=== PATIENT | female | born 1955 | race Caucasian/White ===

== ENCOUNTER 2017-08-10 07:46 | Inpatient (IN) | payer OTHER ==
[~2017-08-10 07:46] MED LIST: Bisacodyl 5 MG Tab PO PRN; Famotidine 20 MG Tab PO SCH; Lactated Ringers 1,000 ML IV SCH; Lidocaine 1%/Sod Bicarbonate in NS 8.4% 1 ML Syringe IDERM PRN; Magnesium Hydroxide 400 MG/5 ML Susp 30 ML Cup PO PRN; Morphine 2 MG/ML Syringe IVPUSH PRN; Naloxone 0.4 MG/ML SDV IVPUSH PRN; Ondansetron 4 MG/2 ML SDV IVPUSH PRN; Sennosides 8.6 MG Tab PO PRN; Sodium Chloride 0.9% 10 ML Syringe FLUSH PRN
[2017-08-10] MEDS ORDERED: ceFAZolin 1 GM Vial ONE (07:59)
[2017-08-10] MEDS ORDERED: Ondansetron 4 MG/2 ML SDV ONE (08:21)
[2017-08-10] MEDS ORDERED: Midazolam 1 MG/ML 2 ML SDV ONE (08:22)
[2017-08-10] MEDS ORDERED: Propofol 200 MG/20 ML SDV ONE ×2 (08:22→09:17)
[2017-08-10] MEDS ORDERED: fentaNYL 100 MCG/2 ML SDV ONE (08:22)
[2017-08-10] MEDS ORDERED: Acetaminophen 325 MG Tab PO ONE (08:34)
--- NOTE | 2017-08-10 08:41 | PCM.PREANE ---
Preanesthetic Assessment - Anesthesia/Transfusion/Family Hx Anesthesia History: Prior Anesthesia Without Reaction Family History of Anesthesia Reaction: No Transfusion History: No Prior Transfusion(s) - Review of Systems General: No Symptoms Pulmonary: No Symptoms Cardiovascular: No Symptoms (NSR with nonspecific t wave abnormality) Gastrointestinal: Other (occasional reflux, on prilosec) Neurological: No Symptoms Other: Reports: Depression - Physical Assessment NPO Status Date: 08/09/17 NPO Status Time: 19:30 Pulse: 63 O2 Sat by Pulse Oximetry: 96 Respiratory Rate: 16 Blood Pressure: 137/85 Height: 1.73 m Weight: 89 kg ASA Class: 2 Mental Status: Alert & Oriented x3 Airway Class: Mallampati = 2 Dentition: Reports: Normal Dentition Thyro-Mental Finger Breadths: 2 Mouth Opening Finger Breadths: 2 ROM/Head Extension: Full Lungs: Clear to Auscultation, Normal Respiratory Effort Cardiovascular: Regular Rate, Regular Rhythm - Lab Values: Laboratory Last Values MRSA (PCR) Negative 07/28/17 11:43 - Allergies Allergies/Adverse Reactions: Allergies Allergy/AdvReac Type Severity Reaction Status Date / Time amantadine Allergy Rash Verified 08/07/17 13:04 - Blood Blood Available: No Product(s) Available: None - Acknowledgements Anesthesia Type Planned: Spinal Pt an Appropriate Candidate for the Planned Anesthesia: Yes Alternatives and Risks of Anesthesia Discussed w Pt/Guardian: Yes Pt/Guardian Understands and Agrees with Anesthesia Plan: Yes PreAnesthesia Questionnaire HEENT History: Reports: Impaired Vision Cardiovascular History: Reports: None Respiratory History: Reports: None Gastrointestinal History: Reports: Chronic Constipation, GERD Genitourinary History: Reports: UTI, Recurrent 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: Musculoskeletal History: Reports: Osteoarthritis, Other (See Below) Other Musculoskeletal History: tendinitis, plantar fasciititis Neurological History: Reports: Other (See Below) Other Neuro History: cervical region somatic dysfunction Psychiatric History: Reports: Depression, Other (See Below) Other Psychiatric History: fatigue Endocrine/Metabolic History: Reports: Obesity/BMI 30+ Hematologic History: Reports: None Immunologic History: Reports: None Oncologic (Cancer) History: Reports: None Dermatologic History: Reports: None - Past Surgical History Head Surgeries/Procedures: Reports: None HEENT Surgical History: Reports: Cataract Surgery Cardiovascular Surgical History: Reports: None Respiratory Surgical History: Reports: None GI Surgical History: Reports: Colonoscopy Female Surgical History: Reports: Tubal Ligation Male Surgical History: Reports: None Endocrine Surgical History: Reports: None Neurological Surgical History: Reports: None Musculoskeletal Surgical History: Reports: Hip Replacement Oncologic Surgical History: Reports: None Dermatological Surgical History: Reports: None - SUBSTANCE USE Smoking Status *Q: Former Smoker Second Hand Smoke Exposure: No Recreational Drug Use History: No - HOME MEDS Home Medications: Home Meds Esomeprazole [NexIUM] 20 mg PO DAILY 08/07/17 [History] Herbal Drugs [Colon Herbal Cleanser] 1 dose PO DAILY PRN 08/07/17 [History] Meloxicam 15 mg PO DAILY 08/07/17 [History] Multivitamin [Daily Maritza] 1 tab PO DAILY 08/07/17 [History] Polyethylene Glycol 3350 [MiraLAX] 1 dose PO DAILY PRN 08/07/17 [History] Pseudoephedrine [Sudogest] 60 mg PO DAILY PRN 08/07/17 [History] Sertraline HCl 100 mg PO DAILY 08/07/17 [History] - CURRENT (IN HOUSE) MEDS Current Meds: Current Medications Acetaminophen (Tylenol) 1,000 mg PO NOW ONE Stop: 08/10/17 08:35 Aspirin (Ecotrin) 325 mg PO BID SHANKAR Bisacodyl (Dulcolax) 5 mg PO DAILY PRN PRN Reason: Constipation Morphine Sulfate 8 mg/Epinephrine HCl 0.3 mg/Cefuroxime Sodium 750 mg/Ketorolac Tromethamine 30 mg/Sodium Chloride 27.9 ml 0 mg .XX ONETIME ONE Stop: 08/10/17 10:01 Cyclobenzaprine HCl (Flexeril) 10 mg PO TID PRN PRN Reason: Spasms Docusate Sodium (Colace) 100 mg PO BID SHANKAR Famotidine (Pepcid) 20 mg PO Q12H SHANKAR Lactated Ringer's (Ringers, Lactated) 1,000 mls @ 125 mls/hr IV ASDIRECTED SHANKAR Stop: 08/10/17 23:00 Cefazolin Sodium/Dextrose 2 gm (/ Premix) 50 mls @ 100 mls/hr IV Q8H [facility] Stop: 08/10/17 23:29 Ketorolac Tromethamine (Toradol) 15 mg IVPUSH Q6H PRN PRN Reason: Pain Lidocaine/Sodium Bicarbonate (Buffered Lidocaine 1% In Ns 8.4%) 0.25 ml IDERM ONETIME PRN PRN Reason: Prior to IV Start Stop: 08/10/17 18:00 Magnesium Hydroxide (Milk Of Magnesia) 30 ml PO BID PRN PRN Reason: Constipation Morphine Sulfate (Morphine) 2 mg IVPUSH Q2H PRN PRN Reason: Breakthrough Pain Naloxone HCl (Narcan) 0.1 mg IVPUSH Q5M PRN PRN Reason: Oversedation Ondansetron HCl (Zofran) 4 mg IVPUSH Q6H PRN PRN Reason: Nausea/Vomiting Oxycodone HCl (Oxycontin) 10 mg PO ONETIME ONE Stop: 08/10/17 08:36 Oxycodone/Acetaminophen (Percocet 325-5 Mg) 1 - 2 tab PO Q4H PRN PRN Reason: Pain Pregabalin (Lyrica) 50 mg PO DAILY SHANKAR Senna (Senna) 8.6 mg PO BID PRN PRN Reason: Constipation Sodium Chloride (Saline Flush) 10 ml FLUSH ASDIRECTED PRN PRN Reason: Keep Vein Open Stop: 08/10/17 18:00 Discontinued Medications Bupivacaine HCl (Marcaine 0.25%) Confirm Administered Dose 30 ml .ROUTE .STK- MED ONE Stop: 08/10/17 08:00 Cefazolin Sodium (Ancef) Confirm Administered Dose 2 gm .ROUTE .STK-MED ONE Stop: 08/10/17 08:22 Cefazolin Sodium (Ancef) Confirm Administered Dose 2 gm .ROUTE .STK-MED ONE Stop: 08/10/17 08:00 Fentanyl (Sublimaze) Confirm Administered Dose 100 mcg .ROUTE .STK-MED ONE Stop: 08/10/17 08:23 Iodine (Iodine 2% Mild Tincture) Confirm Administered Dose 30 ml .ROUTE .STK- MED ONE Stop: 08/10/17 08:00 Midazolam HCl (Versed 1 Mg/Ml) Confirm Administered Dose 2 mg .ROUTE .STK-MED ONE Stop: 08/10/17 08:23 Ondansetron HCl (Zofran) Confirm Administered Dose 4 mg .ROUTE .STK-MED ONE Stop: 08/10/17 08:22 Propofol (Diprivan 20 Ml) Confirm Administered Dose 200 mg .ROUTE .STK-MED ONE Stop: 08/10/17 08:23 Tranexamic Acid (Cyklokapron) Confirm Administered Dose 1,000 mg .ROUTE .STK- MED ONE Stop: 08/10/17 08:00 Vancomycin HCl (Vancomycin) Confirm Administered Dose 1 gm .ROUTE .STK-MED ONE Stop: 08/10/17 08:00
[2017-08-10] MEDS ORDERED: Morphine PF 1 MG/ML Amp ONE (08:46)
[2017-08-10] MEDS ORDERED: oxyCODONE ER 10 MG TAB.ER PO ONE (09:15)
[2017-08-10] MEDS: Pregabalin 25 MG Cap PO SCH (10:02)
[2017-08-10] MEDS: ceFAZolin 1 GM Vial ONE ×2 (11:22→11:48)
[2017-08-10] MEDS: Bupivacaine 0.25% 30 ML SDV ONE ×2 (11:22→11:53)
[2017-08-10] MEDS: Iodine/Sodium Iodide 2% Tincture 30 ML Bottle ONE ×2 (11:23→11:46)
[2017-08-10] MEDS: Morphine 8 MG, EPINEPHrine 0.3 MG, Cefuroxime 750 MG, Ketorolac 30 MG, Sodium Chloride ... ONE ×10 (11:23→11:52)
[2017-08-10] MEDS: Vancomycin 1 GM SDV ONE ×2 (11:24→11:55)
[2017-08-10] MEDS ORDERED: diphenhydrAMINE 50 MG/ML SDV IVPUSH PRN (11:42)
[2017-08-10] MEDS ORDERED: fentaNYL 100 MCG/2 ML SDV IVPUSH PRN (11:42)
[2017-08-10] MEDS ORDERED: Lactated Ringers 1,000 ML ONE ×2 (12:14)
[2017-08-10] MEDS ORDERED: Ketorolac 30 MG/ML SDV ONE (12:14)
--- NOTE | 2017-08-10 12:29 | PCM.POSTAN ---
POST ANESTHESIA ASSESSMENT - MENTAL STATUS Mental Status: Alert, Oriented - VITAL SIGNS Pulse Rate: 57 SaO2: 93 Resp Rate: 13 Blood Pressure: 105/68 Temperature: 36.7 C - RESPIRATORY Respiratory Status: Respiratory Rate WNL, Airway Patent, O2 Saturation Stable, Supplemental Oxygen - CARDIOVASCULAR CV Status: Pulse Rate WNL, Blood Pressure Stable - GASTROINTESTINAL GI Status: No Symptoms - PAIN Pain Score: 0 - POST OP HYDRATION Hydration Status: Adequate & Stable
[2017-08-10] MEDS ORDERED: Pseudoephedrine 30 MG Tab PO PRN (13:30)
[2017-08-10] MEDS ORDERED: Polyethylene Glycol 3350 Powder 17 GM Packet PO PRN (13:30)
--- NOTE | 2017-08-10 14:01 | PCM.CONS ---
H&P History of Present Illness - General Date of Service: 08/10/17 Admit Problem/Dx: Admission Diagnosis/Problem Admission Diagnosis/Problem Osteoarthritis of hip Source of Information: Patient, Old Records, Provider, RN, RN Notes Reviewed History Limitations: Reports: No Limitations - History of Present Illness Initial Comments - Free Text/Narative: Pilar is a 62 yo female patient of Dr. De La Rosa who is post-operative day 0 of L JAMARCUS. Hospital medicine was consulted for post-operative medical care. At this time she is stable. Pain is controlled, currently 4/10. She denies any chest pain, shortness of breath, palpitations, nausea, or vomiting. She carries a history of: Depression, GERD, constipation, UTI, cervical region somatic dysfunction, obesity, cataract surgery, tubal ligation, hip replacement. She is a former smoker- quit in 1987. She is a full code. Her primary care provider is Sravani White. Left Hip Pain Score (Numeric/FACES): 4 - Related Data Allergies/Adverse Reactions: Allergies Allergy/AdvReac Type Severity Reaction Status Date / Time amantadine Allergy Rash Verified 08/07/17 13:04 Home Medications: Home Meds Esomeprazole [NexIUM] 20 mg PO DAILY 08/07/17 [History] Herbal Drugs [Colon Herbal Cleanser] 1 dose PO DAILY PRN 08/07/17 [History] Multivitamin [Daily Maritza] 1 tab PO DAILY 08/07/17 [History] Polyethylene Glycol 3350 [MiraLAX] 1 dose PO DAILY PRN 08/07/17 [History] Pseudoephedrine [Sudogest] 60 mg PO DAILY PRN 08/07/17 [History] Sertraline HCl 100 mg PO DAILY 08/07/17 [History] Magnesium 250 mg PO DAILY 08/10/17 [History] Past Medical History HEENT History: Reports: Impaired Vision Cardiovascular History: Reports: None Respiratory History: Reports: None Gastrointestinal History: Reports: Chronic Constipation, GERD Genitourinary History: Reports: UTI, Recurrent 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: Musculoskeletal History: Reports: Osteoarthritis, Other (See Below) Other Musculoskeletal History: tendinitis, plantar fasciititis Neurological History: Reports: Other (See Below) Other Neuro History: cervical region somatic dysfunction Psychiatric History: Reports: Depression, Other (See Below) Other Psychiatric History: fatigue Endocrine/Metabolic History: Reports: Obesity/BMI 30+ Hematologic History: Reports: None Immunologic History: Reports: None Oncologic (Cancer) History: Reports: None Dermatologic History: Reports: None - Past Surgical History Head Surgeries/Procedures: Reports: None HEENT Surgical History: Reports: Cataract Surgery Cardiovascular Surgical History: Reports: None Respiratory Surgical History: Reports: None GI Surgical History: Reports: Colonoscopy Female Surgical History: Reports: Tubal Ligation Male Surgical History: Reports: None Endocrine Surgical History: Reports: None Neurological Surgical History: Reports: None Musculoskeletal Surgical History: Reports: Hip Replacement Oncologic Surgical History: Reports: None Dermatological Surgical History: Reports: None Social & Family History - Tobacco Use Smoking Status *Q: Former Smoker Used Tobacco, but Quit: Yes Month/Year Tobacco Last Used: 1987 Second Hand Smoke Exposure: No - Caffeine Use Caffeine Use: Reports: Coffee - Recreational Drug Use Recreational Drug Use: No H&P Review of Systems - Review of Systems: Review Of Systems: See Below General: Reports: No Symptoms. Denies: Fever, Chills HEENT: Reports: No Symptoms Pulmonary: Reports: No Symptoms Cardiovascular: Reports: No Symptoms Gastrointestinal: Reports: No Symptoms Genitourinary: Reports: No Symptoms Musculoskeletal: Reports: Joint Pain (Left hip, s/p surgery, 08/18) Skin: Reports: No Symptoms Psychiatric: Reports: No Symptoms Neurological: Reports: No Symptoms Hematologic/Lymphatic: Reports: No Symptoms Immunologic: Reports: No Symptoms Exam - Exam Exam: See Below - Vital Signs Vital Signs: Last Vital Signs Temp 98.1 F 08/10/17 13:22 Pulse 55 L 08/10/17 13:35 Resp 20 08/10/17 13:35 BP 115/76 08/10/17 13:35 Pulse Ox 91 L 08/10/17 13:35 Weight: 196 lb 3.382 oz - Exam Quality Assessment: Supplemental Oxygen (1L nasal cannula), Urinary Catheter, DVT Prophylaxis General: Alert, Oriented, 4 HEENT: Conjunctiva Clear, EOMI, Hearing Intact, Mucosa Moist & [place], PERRLA Neck: Supple Lungs: Clear to Auscultation, Normal Respiratory Effort Cardiovascular: Regular Rate, Regular Rhythm GI/Abdominal Exam: Normal Bowel Sounds, Soft, Non-Tender (Female) Exam: Deferred Rectal (Female) Exam: Deferred Back Exam: Normal Inspection, Full Range of Motion Extremities: Normal Inspection, No Pedal Edema, Normal Capillary Refill, Limited Range of Motion (R hip, s/p surgery) Peripheral Pulses: 2+: Posterior Tibial (L), Posterior Tibial (R), Dorsalis Pedis (L), Dorsalis Pedis (R) Skin: Warm, Dry, Intact Neurological: Cranial Nerves Intact (grossly) Neuro Extensive - Mental Status: Alert, Oriented x3, Normal Mood/Affect, Normal Cognition Psychiatric: Alert, Normal Affect, Normal Mood - Patient Data Lab Results Last 24 hrs: Laboratory Results - last 24 hr 08/10/17 Range/Units 08:22 Blood Type B POSITIVE Gel Antibody Screen Negative Consult PN Assessment/Plan POD#: 0 (1) S/P total hip arthroplasty SNOMED Code(s): 804866399852, 448883764737 Code(s): Z96.649 - PRESENCE OF UNSPECIFIED ARTIFICIAL HIP JOINT Priority: High Current Visit: Yes Qualifiers: Laterality: left Qualified Code(s): Z96.642 - Presence of left artificial hip joint (2) GERD (gastroesophageal reflux disease) SNOMED Code(s): 533844982 Code(s): K21.9 - GASTRO-ESOPHAGEAL REFLUX DISEASE WITHOUT ESOPHAGITIS Priority: Medium Current Visit: No Qualifiers: Esophagitis presence: esophagitis presence not specified Qualified Code(s) : K21.9 - Gastro-esophageal reflux disease without esophagitis (3) Cervical (neck) region somatic dysfunction SNOMED Code(s): 166620635 Code(s): M99.01 - SEGMENTAL AND SOMATIC DYSFUNCTION OF CERVICAL REGION Priority: Low Current Visit: No (4) Other specified depressive episodes SNOMED Code(s): 08226367 Code(s): F32.89 - OTHER SPECIFIED DEPRESSIVE EPISODES Priority: Low Current Visit: No (5) Chronic UTI SNOMED Code(s): 198046213 Code(s): N39.0 - URINARY TRACT INFECTION, SITE NOT SPECIFIED Priority: Medium Current Visit: No Problem List Initiated/Reviewed/Updated: Yes Plan: I/P: Acute: S/P left total hip arthroplasty - post-operative day 0 -DVT prophylaxis and pain management per primary care team -PT/OT -IS/RT -Monitor oxygen saturation -Titrate oxygen as needed -Vital signs stable -Monitor labs -Pre-operative Hgb was 13 Osteoarthritis of left hip -Pain management per primary care team Chronic: Depression GERD Constipation Cervical region somatic dysfunction Obesity Cataract surgery Tubal ligation R Hip replacement UTI Plan: CM for discharge planning GI prophylaxis Home medications as indicated Other orders as listed above Routine AM labs She is a full code. Her PCP is Sravani White. Thank you for allowing us to participate in the care of this patient!!
[2017-08-10] MEDS: Acetaminophen/oxyCODONE 325-5 MG Tab PO PRN ×2 (14:16→18:59)
--- NOTE | 2017-08-10 14:52 | CR ---
Pelvis and left hip: AP view of the pelvis was obtained as well as lateral view of the left hip. Bilateral hip prosthesis are seen. Prosthesis on the left side appears to have been recently placed. Components of both prosthesis appear normal in alignment. Soft tissue air is noted around the left hip compatible with the surgical procedure. Bony structures are osteopenic but appear intact. Impression: 1. Satisfactory radiographic appearance of recently placed left hip prosthesis. 2. Osteopenia and unremarkable right hip prosthesis. Diagnostic code #2
--- NOTE | 2017-08-10 15:04 | PCM48HPAN ---
Post Anesthesia Note - EVALUATION WITHIN 48HRS OF ANESTHETIC Vital Signs in Normal Range: Yes Patient Participated in Evaluation: Yes Respiratory Function Stable: Yes Airway Patent: Yes Cardiovascular Function Stable: Yes Hydration Status Stable: Yes Pain Control Satisfactory: Yes Nausea and Vomiting Control Satisfactory: Yes Mental Status Recovered: Yes Pulse Rate: 57 SaO2: 99 Resp Rate: 20 Temperature: 36.7 C Blood Pressure: 105/68
[2017-08-10] MEDS: ceFAZolin 2 GM in Premix Bag 1 BAG IV SCH (16:26)
--- NOTE | 2017-08-10 17:07 | PCM.OPNOTE ---
- General Post-Op/Procedure Note Date of Surgery/Procedure: 08/10/17 Operative Procedure(s): left total hip arthroplasty Pre Op Diagnosis: left hip osteoarthrosis Post-Op Diagnosis: Same Anesthesia Technique: Local, MAC, Spinal Primary Surgeon: Jc De La Rosa Anesthesia Provider: Jocelyn Clayton Surgical Tech: Savannah Emmanuel Surgical Tech: Sunitha Kohli EBL in mLs: 300 Complications: None Condition: Good Free Text/Narrative:: Intake & Output 08/10/17 08/10/17 08/10/17 06:59 14:59 22:59 Intake Total 250 100 Output Total 150 Balance 100 100 size 54mm tritanium size 5 stem 36mm
[2017-08-10] MEDS: Docusate Sodium 100 MG Cap PO SCH (20:47)
[2017-08-10] MEDS: Ketorolac 15 MG/ML SDV IVPUSH PRN (20:48)
[2017-08-11] MEDS: ceFAZolin 2 GM in Premix Bag 1 BAG IV SCH ×2 (00:13→08:02)
[2017-08-11] MEDS: Acetaminophen/oxyCODONE 325-5 MG Tab PO PRN ×3 (00:15→10:57)
[2017-08-11] MEDS: Cyclobenzaprine 10 MG Tab PO PRN ×2 (00:15→08:07)
[2017-08-11] MEDS: Ketorolac 15 MG/ML SDV IVPUSH PRN (06:23)
--- NOTE | 2017-08-11 07:01 | PCM.CONSN ---
- General Info Date of Service: 08/11/17 Admission Dx/Problem (Free Text): Admission Diagnosis/Problem Admission Diagnosis/Problem Osteoarthritis of hip Subjective Update: In to see Pilar today- post-op day 1. She is lying in bed. Overall she is doing quite well. She has no complaints. She has been sleeping well. Good appetite. Urinating. Pain is controlled, 2/10. No fever, chills, nausea, vomiting, diarrhea, CP, or SOB. Incentive Spirometry. No concerns from nursing. Will be DCd back home today after PT/OT consults. Functional Status: Reports: Pain Controlled, Tolerating Diet, Urinating, Incentive Spirometry Pain Score: 2 - Review of Systems General: Reports: No Symptoms. Denies: Fever, Chills HEENT: Reports: No Symptoms Pulmonary: Reports: No Symptoms. Denies: Shortness of Breath, Cough Cardiovascular: Reports: No Symptoms. Denies: Chest Pain Gastrointestinal: Reports: No Symptoms. Denies: Abdominal Pain, Constipation, Diarrhea, Nausea, Vomiting Genitourinary: Reports: No Symptoms Musculoskeletal: Reports: Joint Pain (L hip, s/p JAMARCUS) Skin: Reports: No Symptoms Neurological: Reports: No Symptoms Psychiatric: Reports: No Symptoms - Patient Data Vitals - Most Recent: Last Vital Signs Temp 97.5 F 08/10/17 20:58 Pulse 60 08/10/17 20:58 Resp 16 08/10/17 20:58 BP 136/66 08/10/17 20:58 Pulse Ox 97 08/10/17 20:58 Weight - Most Recent: 196 lb 3.382 oz I&O - Last 24 Hours: Intake & Output 08/10/17 08/10/17 08/11/17 14:59 22:59 06:59 Intake Total 250 640 50 Output Total 150 400 Balance 100 240 50 Lab Results Last 24 Hours: Laboratory Results - last 24 hr 08/10/17 Range/Units 08:22 Blood Type B POSITIVE Gel Antibody Screen Negative Med Orders - Current: Current Medications Aspirin (Ecotrin) 325 mg PO BID SHANKAR Bisacodyl (Dulcolax) 5 mg PO DAILY PRN PRN Reason: Constipation Cyclobenzaprine HCl (Flexeril) 10 mg PO TID PRN PRN Reason: Spasms Last Admin: 08/11/17 00:15 Dose: 10 mg Docusate Sodium (Colace) 100 mg PO BID [facility] Last Admin: 08/10/17 20:47 Dose: 100 mg Cefazolin Sodium/Dextrose 2 gm (/ Premix) 50 mls @ 100 mls/hr IV Q8H [facility] Stop: 08/11/17 08:59 Last Admin: 08/11/17 00:13 Dose: 100 mls/hr Ketorolac Tromethamine (Toradol) 15 mg IVPUSH Q6H PRN PRN Reason: Pain Last Admin: 08/11/17 06:23 Dose: 15 mg Magnesium Hydroxide (Milk Of Magnesia) 30 ml PO BID PRN PRN Reason: Constipation Morphine Sulfate (Morphine) 2 mg IVPUSH Q2H PRN PRN Reason: Breakthrough Pain Multivitamins (Thera) 1 each PO DAILY [facility] Naloxone HCl (Narcan) 0.1 mg IVPUSH Q5M PRN PRN Reason: Oversedation Ondansetron HCl (Zofran) 4 mg IVPUSH Q6H PRN PRN Reason: Nausea/Vomiting Oxycodone/Acetaminophen (Percocet 325-5 Mg) 1 - 2 tab PO Q4H PRN PRN Reason: Pain Last Admin: 08/11/17 06:23 Dose: 2 tab Pantoprazole Sodium (Protonix) 40 mg PO DAILY [facility] Polyethylene Glycol (Miralax) 17 gm PO DAILY PRN PRN Reason: Constipation Pregabalin (Lyrica) 50 mg PO DAILY [facility] Last Admin: 08/10/17 10:02 Dose: 50 mg Pseudoephedrine HCl (Sudogest) 60 mg PO DAILY PRN PRN Reason: Allergies Senna (Senna) 8.6 mg PO BID PRN PRN Reason: Constipation Sertraline HCl (Zoloft) 100 mg PO DAILY [facility] Discontinued Medications Acetaminophen (Tylenol) 975 mg PO NOW ONE Stop: 08/10/17 08:35 Last Admin: 08/10/17 10:02 Dose: 975 mg Bupivacaine HCl (Marcaine 0.25%) Confirm Administered Dose 30 ml .ROUTE .STK- MED ONE Stop: 08/10/17 08:00 Last Admin: 08/10/17 11:53 Dose: 30 ml Cefazolin Sodium (Ancef) Confirm Administered Dose 2 gm .ROUTE .STK-MED ONE Stop: 08/10/17 08:22 Last Admin: 08/10/17 11:48 Dose: 2 gm Cefazolin Sodium (Ancef) Confirm Administered Dose 2 gm .ROUTE .STK-MED ONE Stop: 08/10/17 08:00 Morphine Sulfate 8 mg/Epinephrine HCl 0.3 mg/Cefuroxime Sodium 750 mg/Ketorolac Tromethamine 30 mg/Sodium Chloride 27.9 ml 0 mg .XX ONETIME ONE Stop: 08/10/17 10:01 Last Admin: 08/10/17 11:52 Dose: 788.3 mg Diphenhydramine HCl (Benadryl) 25 mg IVPUSH Q6H PRN PRN Reason: itching Stop: 08/10/17 16:00 Famotidine (Pepcid) 20 mg PO Q12H [facility] Last Admin: 08/10/17 15:22 Dose: Not Given Fentanyl (Sublimaze) Confirm Administered Dose 100 mcg .ROUTE .STK-MED ONE Stop: 08/10/17 08:23 Fentanyl (Sublimaze) 50 mcg IVPUSH Q5M PRN PRN Reason: pain Stop: 08/10/17 16:00 Last Admin: 08/10/17 13:30 Dose: 50 mcg Lactated Ringer's (Ringers, Lactated) 1,000 mls @ 125 mls/hr IV ASDIRECTED [facility] Stop: 08/10/17 23:00 Last Admin: 08/10/17 08:25 Dose: 125 mls/hr Lactated Ringer's (Ringers, Lactated) Confirm Administered Dose 1,000 mls @ as directed .ROUTE .STK-MED ONE Stop: 08/10/17 12:15 Lactated Ringer's (Ringers, Lactated) Confirm Administered Dose 1,000 mls @ as directed .ROUTE .STK-MED ONE Stop: 08/10/17 12:15 Iodine (Iodine 2% Mild Tincture) Confirm Administered Dose 30 ml .ROUTE .STK- MED ONE Stop: 08/10/17 08:00 Last Admin: 08/10/17 11:46 Dose: 18 ml Ketorolac Tromethamine (Toradol) Confirm Administered Dose 30 mg .ROUTE .STK- MED ONE Stop: 08/10/17 12:15 Lidocaine/Sodium Bicarbonate (Buffered Lidocaine 1% In Ns 8.4%) 0.25 ml IDERM ONETIME PRN PRN Reason: Prior to IV Start Stop: 08/10/17 18:00 Last Admin: 08/10/17 08:24 Dose: 0.25 ml Midazolam HCl (Versed 1 Mg/Ml) Confirm Administered Dose 2 mg .ROUTE .STK-MED ONE Stop: 08/10/17 08:23 Morphine Sulfate (Duramorph Pf) Confirm Administered Dose 1 mg .ROUTE .STK-MED ONE Stop: 08/10/17 08:47 Ondansetron HCl (Zofran) Confirm Administered Dose 4 mg .ROUTE .STK-MED ONE Stop: 08/10/17 08:22 Oxycodone HCl (Oxycontin) 10 mg PO ONETIME ONE Stop: 08/10/17 09:16 Last Admin: 08/10/17 10:02 Dose: 10 mg Propofol (Diprivan 20 Ml) Confirm Administered Dose 200 mg .ROUTE .STK-MED ONE Stop: 08/10/17 08:23 Propofol (Diprivan 20 Ml) Confirm Administered Dose 400 mg .ROUTE .STK-MED ONE Stop: 08/10/17 09:18 Sodium Chloride (Saline Flush) 10 ml FLUSH ASDIRECTED PRN PRN Reason: Keep Vein Open Stop: 08/10/17 18:00 Tranexamic Acid (Cyklokapron) Confirm Administered Dose 1,000 mg .ROUTE .STK- MED ONE Stop: 08/10/17 08:00 Last Admin: 08/10/17 11:54 Dose: 1,000 mg Vancomycin HCl (Vancomycin) Confirm Administered Dose 1 gm .ROUTE .STK-MED ONE Stop: 08/10/17 08:00 Last Admin: 08/10/17 11:55 Dose: 1 gm - Exam Quality Assessment: Supplemental Oxygen (2L nasal cannula), DVT Prophylaxis. No : Urine Catheter General: Alert, Oriented HEENT: Pupils Equal, Pupils Reactive, EOMI, Mucous Membr. Moist/[place] Neck: Supple Lungs: Clear to Auscultation, Normal Respiratory Effort Cardiovascular: Regular Rate, Regular Rhythm GI/Abdominal Exam: Normal Bowel Sounds, Soft, Non-Tender, No Distention (Female) Exam: Deferred Back Exam: Normal Inspection, Full Range of Motion Extremities: Normal Inspection, Non-Tender, No Pedal Edema, Normal Capillary Refill, Limited Range of Motion (L hip, s/p JAMARCUS) Peripheral Pulses: 2+: Posterior Tibial (L), Posterior Tibial (R), Dorsalis Pedis (L), Dorsalis Pedis (R) Skin: Warm, Dry, Intact Wound/Incisions: Dressing Dry and Intact, No Drainage Neurological: No New Focal Deficit Psy/Mental Status: Alert, Normal Affect, Normal Mood Consult PN Assessment/Plan POD#: 1 (1) S/P total hip arthroplasty SNOMED Code(s): 875588325581, 420528859575 Code(s): Z96.649 - PRESENCE OF UNSPECIFIED ARTIFICIAL HIP JOINT Priority: High Current Visit: Yes Qualifiers: Laterality: left Qualified Code(s): Z96.642 - Presence of left artificial hip joint (2) GERD (gastroesophageal reflux disease) SNOMED Code(s): 878237272 Code(s): K21.9 - GASTRO-ESOPHAGEAL REFLUX DISEASE WITHOUT ESOPHAGITIS Priority: Medium Current Visit: No Qualifiers: Esophagitis presence: esophagitis presence not specified Qualified Code(s) : K21.9 - Gastro-esophageal reflux disease without esophagitis (3) Cervical (neck) region somatic dysfunction SNOMED Code(s): 147516240 Code(s): M99.01 - SEGMENTAL AND SOMATIC DYSFUNCTION OF CERVICAL REGION Priority: Low Current Visit: No (4) Other specified depressive episodes SNOMED Code(s): 05950686 Code(s): F32.89 - OTHER SPECIFIED DEPRESSIVE EPISODES Priority: Low Current Visit: No (5) Chronic UTI SNOMED Code(s): 272919903 Code(s): N39.0 - URINARY TRACT INFECTION, SITE NOT SPECIFIED Priority: Medium Current Visit: No Problem List Initiated/Reviewed/Updated: Yes Plan: I/P: Acute: S/P left total hip arthroplasty - post-operative day 1 -DVT prophylaxis and pain management per primary care team -PT/OT -IS/RT -Monitor oxygen saturation -Titrate oxygen as needed -Vital signs stable -Monitor labs -Pre-operative Hgb was 13--> 11.3 today Osteoarthritis of left hip -Pain management per primary care team Chronic: Depression GERD Constipation Cervical region somatic dysfunction Obesity Cataract surgery Tubal ligation R Hip replacement UTI Plan: CM for discharge planning GI prophylaxis: Protonix DVT/PE prophylaxis: BABITA peres, SCD, ASA Home medications as indicated Other orders as listed above Routine AM labs She is a full code. Her PCP is Sravani White. Thank you for allowing us to participate in the care of this patient!! From a hospital standpoint, this patient is clear for discharge.
[2017-08-11] MEDS: Docusate Sodium 100 MG Cap PO SCH (08:02)
[2017-08-11] MEDS: Pregabalin 25 MG Cap PO SCH (08:03)
--- NOTE | 2017-08-11 08:11 | PCM48HPAN ---
Post Anesthesia Note - EVALUATION WITHIN 48HRS OF ANESTHETIC Vital Signs in Normal Range: Yes Patient Participated in Evaluation: Yes Respiratory Function Stable: Yes Airway Patent: Yes Cardiovascular Function Stable: Yes Hydration Status Stable: Yes Pain Control Satisfactory: Yes Nausea and Vomiting Control Satisfactory: Yes Mental Status Recovered: Yes
[2017-08-11] MEDS ORDERED: Pantoprazole 40 MG Tab.CR PO SCH (09:00)
[2017-08-11] MEDS ORDERED: Multivitamins,Therapeutic Tab PO SCH (09:00)
[2017-08-11] MEDS ORDERED: Aspirin 325 MG Tab.EC PO SCH (09:00)
[2017-08-11] MEDS ORDERED: Sertraline 50 MG Tab PO SCH (09:00)
--- NOTE | 2017-08-11 23:24 | PCM.SURGPN ---
- General Info Date of Service: 08/11/17 POD#: 1 Functional Status: Reports: Pain Controlled, Tolerating Diet, Ambulating, Urinating, Incentive Spirometry - Review of Systems Musculoskeletal: Reports: Other (The pt has met inpatient therapy goals.) - Patient Data Vitals - Most Recent: Last Vital Signs Temp 99.0 F 08/11/17 11:28 Pulse 72 08/11/17 11:28 Resp 19 08/11/17 11:28 BP 94/67 08/11/17 11:28 Pulse Ox 95 08/11/17 11:28 Weight - Most Recent: 196 lb 3.382 oz I&O - Last 24 Hours: Intake & Output 08/11/17 08/11/17 08/12/17 14:59 22:59 06:59 Intake Total 180 400 Output Total 900 Balance 180 -500 Lab Results Last 24 Hrs: Laboratory Results - last 24 hr 08/11/17 08/11/17 Range/Units 06:18 06:18 WBC 5.57 (3.98-10.04) K/mm3 RBC 3.85 L (3.98-5.22) M/mm3 Hgb 11.3 (11.2-15.7) gm/L Hct 35.3 (34.1-44.9) % MCV 91.7 (79.4-94.8) fl MCH 29.4 (25.6-32.2) pg MCHC 32.0 L (32.2-35.5) g/dl RDW Std Deviation 48.2 H (36.4-46.3) fL Plt Count 226 (182-369) K/mm3 MPV 10.4 (9.4-12.3) fl Sodium 145 (136-145) mEq/L Potassium 4.2 (3.5-5.1) mEq/L Chloride 107 (98-107) mEq/L Carbon Dioxide 31 (21-32) mEq/L Anion Gap 11.2 (5-15) BUN 9 (7-18) mg/dL Creatinine 0.7 (0.55-1.02) mg/dL Est Cr Clr Drug Dosing 85.14 mL/min Estimated GFR (MDRD) > 60 (>60) mL/min BUN/Creatinine Ratio 12.9 L (14-18) Glucose 98 (80-115) mg/dL Calcium 8.9 (8.5-10.1) mg/dL Total Bilirubin 0.3 (0.2-1.0) mg/dL AST 32 (15-37) U/L ALT 22 (14-59) U/L Alkaline Phosphatase 70 (46-116) U/L Total Protein 6.1 L (6.4-8.2) g/dl Albumin 3.2 L (3.4-5.0) g/dl Globulin 2.9 gm/dL Albumin/Globulin Ratio 1.1 (1-2) Med Orders - Current: Current Medications Discontinued Medications Acetaminophen (Tylenol) 975 mg PO NOW ONE Stop: 08/10/17 08:35 Last Admin: 08/10/17 10:02 Dose: 975 mg Aspirin (Ecotrin) 325 mg PO BID [facility] Last Admin: 08/11/17 08:02 Dose: 325 mg Bisacodyl (Dulcolax) 5 mg PO DAILY PRN PRN Reason: Constipation Bupivacaine HCl (Marcaine 0.25%) Confirm Administered Dose 30 ml .ROUTE .STK- MED ONE Stop: 08/10/17 08:00 Last Admin: 08/10/17 11:53 Dose: 30 ml Cefazolin Sodium (Ancef) Confirm Administered Dose 2 gm .ROUTE .STK-MED ONE Stop: 08/10/17 08:22 Last Admin: 08/10/17 11:48 Dose: 2 gm Cefazolin Sodium (Ancef) Confirm Administered Dose 2 gm .ROUTE .STK-MED ONE Stop: 08/10/17 08:00 Morphine Sulfate 8 mg/Epinephrine HCl 0.3 mg/Cefuroxime Sodium 750 mg/Ketorolac Tromethamine 30 mg/Sodium Chloride 27.9 ml 0 mg .XX ONETIME ONE Stop: 08/10/17 10:01 Last Admin: 08/10/17 11:52 Dose: 788.3 mg Cyclobenzaprine HCl (Flexeril) 10 mg PO TID PRN PRN Reason: Spasms Last Admin: 08/11/17 08:07 Dose: 10 mg Diphenhydramine HCl (Benadryl) 25 mg IVPUSH Q6H PRN PRN Reason: itching Stop: 08/10/17 16:00 Docusate Sodium (Colace) 100 mg PO BID [facility] Last Admin: 08/11/17 08:02 Dose: 100 mg Famotidine (Pepcid) 20 mg PO Q12H [facility] Last Admin: 08/10/17 15:22 Dose: Not Given Fentanyl (Sublimaze) Confirm Administered Dose 100 mcg .ROUTE .STK-MED ONE Stop: 08/10/17 08:23 Fentanyl (Sublimaze) 50 mcg IVPUSH Q5M PRN PRN Reason: pain Stop: 08/10/17 16:00 Last Admin: 08/10/17 13:30 Dose: 50 mcg Lactated Ringer's (Ringers, Lactated) 1,000 mls @ 125 mls/hr IV ASDIRECTED [facility] Stop: 08/10/17 23:00 Last Admin: 08/10/17 08:25 Dose: 125 mls/hr Cefazolin Sodium/Dextrose 2 gm (/ Premix) 50 mls @ 100 mls/hr IV Q8H [facility] Stop: 08/11/17 08:59 Last Admin: 08/11/17 08:02 Dose: 100 mls/hr Lactated Ringer's (Ringers, Lactated) Confirm Administered Dose 1,000 mls @ as directed .ROUTE .STK-MED ONE Stop: 08/10/17 12:15 Lactated Ringer's (Ringers, Lactated) Confirm Administered Dose 1,000 mls @ as directed .ROUTE .STK-MED ONE Stop: 08/10/17 12:15 Iodine (Iodine 2% Mild Tincture) Confirm Administered Dose 30 ml .ROUTE .STK- MED ONE Stop: 08/10/17 08:00 Last Admin: 08/10/17 11:46 Dose: 18 ml Ketorolac Tromethamine (Toradol) 15 mg IVPUSH Q6H PRN PRN Reason: Pain Last Admin: 08/11/17 06:23 Dose: 15 mg Ketorolac Tromethamine (Toradol) Confirm Administered Dose 30 mg .ROUTE .STK- MED ONE Stop: 08/10/17 12:15 Lidocaine/Sodium Bicarbonate (Buffered Lidocaine 1% In Ns 8.4%) 0.25 ml IDERM ONETIME PRN PRN Reason: Prior to IV Start Stop: 08/10/17 18:00 Last Admin: 08/10/17 08:24 Dose: 0.25 ml Magnesium Hydroxide (Milk Of Magnesia) 30 ml PO BID PRN PRN Reason: Constipation Midazolam HCl (Versed 1 Mg/Ml) Confirm Administered Dose 2 mg .ROUTE .STK-MED ONE Stop: 08/10/17 08:23 Morphine Sulfate (Morphine) 2 mg IVPUSH Q2H PRN PRN Reason: Breakthrough Pain Morphine Sulfate (Duramorph Pf) Confirm Administered Dose 1 mg .ROUTE .STK-MED ONE Stop: 08/10/17 08:47 Multivitamins (Thera) 1 each PO DAILY [facility] Last Admin: 08/11/17 08:03 Dose: 1 each Naloxone HCl (Narcan) 0.1 mg IVPUSH Q5M PRN PRN Reason: Oversedation Ondansetron HCl (Zofran) 4 mg IVPUSH Q6H PRN PRN Reason: Nausea/Vomiting Ondansetron HCl (Zofran) Confirm Administered Dose 4 mg .ROUTE .STK-MED ONE Stop: 08/10/17 08:22 Oxycodone HCl (Oxycontin) 10 mg PO ONETIME ONE Stop: 08/10/17 09:16 Last Admin: 08/10/17 10:02 Dose: 10 mg Oxycodone/Acetaminophen (Percocet 325-5 Mg) 1 - 2 tab PO Q4H PRN PRN Reason: Pain Last Admin: 08/11/17 10:57 Dose: 2 tab Pantoprazole Sodium (Protonix) 40 mg PO DAILY [facility] Last Admin: 08/11/17 08:03 Dose: 40 mg Polyethylene Glycol (Miralax) 17 gm PO DAILY PRN PRN Reason: Constipation Pregabalin (Lyrica) 50 mg PO DAILY [facility] Last Admin: 08/11/17 08:03 Dose: 50 mg Propofol (Diprivan 20 Ml) Confirm Administered Dose 200 mg .ROUTE .STK-MED ONE Stop: 08/10/17 08:23 Propofol (Diprivan 20 Ml) Confirm Administered Dose 400 mg .ROUTE .STK-MED ONE Stop: 08/10/17 09:18 Pseudoephedrine HCl (Sudogest) 60 mg PO DAILY PRN PRN Reason: Allergies Senna (Senna) 8.6 mg PO BID PRN PRN Reason: Constipation Sertraline HCl (Zoloft) 100 mg PO DAILY [facility] Last Admin: 08/11/17 08:02 Dose: 100 mg Sodium Chloride (Saline Flush) 10 ml FLUSH ASDIRECTED PRN PRN Reason: Keep Vein Open Stop: 08/10/17 18:00 Tranexamic Acid (Cyklokapron) Confirm Administered Dose 1,000 mg .ROUTE .STK- MED ONE Stop: 08/10/17 08:00 Last Admin: 08/10/17 11:54 Dose: 1,000 mg Vancomycin HCl (Vancomycin) Confirm Administered Dose 1 gm .ROUTE .STK-MED ONE Stop: 08/10/17 08:00 Last Admin: 08/10/17 11:55 Dose: 1 gm - Exam Wound/Incisions: Dressing Dry and Intact General: Alert, Cooperative, No Acute Distress Lungs: Normal Respiratory Effort Extremities: Other (NVS intact for BLE. Harjit's negative for BLE. Left thigh soft.) - Problem List Review Problem List Initiated/Reviewed/Updated: Yes - My Orders Last 24 Hours: Active Orders 24 hr Category Date Time Status Ready for Discharge [RC] PER UNIT ROUTINE Care 08/11/17 13:21 Active - Assessment Assessment (Free Text/Narrative):: POD#1 - s/p left JAMARCUS - Plan Plan (Free Text/Narrative):: 1. Hgb 11.3. 2. Discharge to home today. The pt will have the assistance of her . 3. 325mg ASA BID. Frequent mobility and TEDs. 4. JAMARCUS precautions. The pt's case was discussed with Dr. De La Rosa.
--- NOTE | 2017-08-11 23:25 | PCM.DCSUM1 ---
Discharge Summary - Hospital Course Brief History: Pilar is a 62 yo female who underwent left JAMARCUS with Dr. De La Rosa on 08-10-17. The procedure was completed under spinal anesthesia with sedation. The pt tolerated the procedure well and was admitted to the Medical-Surgical Unit. Medical management was provided by the Hospitalist service. The pt's Hospital course was uneventful. The pt's Hgb on POD#1 was 11.3. On POD#1, 325mg ASA BID was initiated for VTE prophylaxis. SCDs and TEDs were also ordered. A Mepilex dressing was placed at the incision site at the time of surgery and remained clean and dry. The pt participated in P.T. and O.T. and progressed well. She followed JAMARCUS precautions. The pt was allowed to WBAT. On POD#1, the pt was deemed appropriate to discharge to home with her . The pt will attend outpatient physical therapy. - Discharge Data Discharge Date: 08/11/17 Discharge Disposition: Home, Self-Care 01 Condition: Good - Patient Summary/Data Operative Procedure(s) Performed: left total hip arthroplasty Consults: Consultations 08/10/17 06:51 OT Evaluation and Treatment [CONS] Routine PT Evaluation and Treatment [CONS] Routine 08/10/17 06:52 Consult to Physician [CONS] Routine - Patient Instructions Diet: Usual Diet as Tolerated Activity: Apply Ice, As Tolerated, Elevate Extremity, Full Weight Bearing Activity, Other: Total hip precautions. Driving: Do Not Drive Showering/Bathing: May Shower Wound/Incision Care: Keep Operative Site/Wound Site Clean and Dry, Do NOT Change Dressing Notify Provider of: Fever, Increased Pain, Swelling and Redness, Drainage, Nausea and/or Vomiting Other/Special Instructions: Please get up and moving around every hour while awake. This helps to prevent blood clots. Please use your walker and have help as needed. Take a 325mg ASPIRIN TWICE DAILY. This also helps to prevent blood clots. The aspirin is being used for blood clot prevention and not for pain management, so please do not miss a dose of the medication. Do the exercises you were taught in the Hospital. Schedule for P.T. Follow the total hip precautions. Use the pain medication as needed. The medication may cause drowsiness and constipation. Contact your primary care provider for instructions if you are constipated. You may use a stool softener like docusate sodium or Colace 100mg twice daily and/or a laxative like Miralax daily for constipation. Use the ice machine often. Elevate the limb to decrease swelling. Keep the Mepilex dressing in place until follow-up at the Clinic. Notify the Clinic if the dressing is saturated. Wear the BABITA hose during the day and you may remove these at night. Eat a diet high in protein as this well help with healing. Schedule an appointment with your primary care provider for 'routine post-op care'. Call the Clinic with questions or concerns - [phone]. - Discharge Plan Prescriptions/Med Rec: Acetaminophen/oxyCODONE [Percocet 325-5 MG] 1 - 2 tab PO Q6H PRN #60 tablet PRN Reason: Pain Aspirin [Ecotrin] 325 mg PO BID #84 tab.ec Cyclobenzaprine [Flexeril] 10 mg PO TID PRN #40 tablet PRN Reason: Spasms Home Medications: Home Meds Esomeprazole [NexIUM] 20 mg PO DAILY 08/07/17 [History] Multivitamin [Daily Maritza] 1 tab PO DAILY 08/07/17 [History] Polyethylene Glycol 3350 [MiraLAX] 1 dose PO DAILY PRN 08/07/17 [History] Pseudoephedrine [Sudogest] 60 mg PO DAILY PRN 08/07/17 [History] Sertraline HCl 100 mg PO DAILY 08/07/17 [History] Magnesium 250 mg PO DAILY 08/10/17 [History] Acetaminophen/oxyCODONE [Percocet 325-5 MG] 1 - 2 tab PO Q6H PRN #60 tablet 07/26 [Rx] Aspirin [Ecotrin] 325 mg PO BID #84 tab.ec 08/11/17 [Rx] Bisacodyl [Dulcolax] 5 mg PO DAILY PRN tablet 08/11/17 [Rx] Cyclobenzaprine [Flexeril] 10 mg PO TID PRN #40 tablet 08/11/17 [Rx] Docusate Sodium [Colace] 100 mg PO BID cap 08/11/17 [Rx] Magnesium Hydroxide [Milk of Magnesia] 30 ml PO BID PRN cup 08/11/17 [Rx] Sennosides [Senna] 8.6 mg PO BID PRN tablet 08/11/17 [Rx] Patient Handouts: Total Hip Replacement Referrals: Savannah Emmanuel PA-C [Physician Manager [employer]] - 08/18/17 3:30 am (Please follow-up with Dr. De La Rosa/Nhi Emmanuel at your previously scheduled appointment on ThursdayAugust 18 at 330pm. The next appointment is on August 25 at 330pm. ) - Patient Data Vitals - Most Recent: Last Vital Signs Temp 99.0 F 08/11/17 11:28 Pulse 72 08/11/17 11:28 Resp 19 08/11/17 11:28 BP 94/67 08/11/17 11:28 Pulse Ox 95 08/11/17 11:28 Weight - Most Recent: 196 lb 3.382 oz I&O - Last 24 hours: Intake & Output 08/11/17 08/11/17 08/12/17 14:59 22:59 06:59 Intake Total 180 400 Output Total 900 Balance 180 -500 Lab Results - Last 24 hrs: Laboratory Results - last 24 hr 08/11/17 08/11/17 Range/Units 06:18 06:18 WBC 5.57 (3.98-10.04) K/mm3 RBC 3.85 L (3.98-5.22) M/mm3 Hgb 11.3 (11.2-15.7) gm/L Hct 35.3 (34.1-44.9) % MCV 91.7 (79.4-94.8) fl MCH 29.4 (25.6-32.2) pg MCHC 32.0 L (32.2-35.5) g/dl RDW Std Deviation 48.2 H (36.4-46.3) fL Plt Count 226 (182-369) K/mm3 MPV 10.4 (9.4-12.3) fl Sodium 145 (136-145) mEq/L Potassium 4.2 (3.5-5.1) mEq/L Chloride 107 (98-107) mEq/L Carbon Dioxide 31 (21-32) mEq/L Anion Gap 11.2 (5-15) BUN 9 (7-18) mg/dL Creatinine 0.7 (0.55-1.02) mg/dL Est Cr Clr Drug Dosing 85.14 mL/min Estimated GFR (MDRD) > 60 (>60) mL/min BUN/Creatinine Ratio 12.9 L (14-18) Glucose 98 (80-115) mg/dL Calcium 8.9 (8.5-10.1) mg/dL Total Bilirubin 0.3 (0.2-1.0) mg/dL AST 32 (15-37) U/L ALT 22 (14-59) U/L Alkaline Phosphatase 70 (46-116) U/L Total Protein 6.1 L (6.4-8.2) g/dl Albumin 3.2 L (3.4-5.0) g/dl Globulin 2.9 gm/dL Albumin/Globulin Ratio 1.1 (1-2) Med Orders - Current: Current Medications Discontinued Medications Acetaminophen (Tylenol) 975 mg PO NOW ONE Stop: 08/10/17 08:35 Last Admin: 08/10/17 10:02 Dose: 975 mg Aspirin (Ecotrin) 325 mg PO BID SHANKAR Last Admin: 08/11/17 08:02 Dose: 325 mg Bisacodyl (Dulcolax) 5 mg PO DAILY PRN PRN Reason: Constipation Bupivacaine HCl (Marcaine 0.25%) Confirm Administered Dose 30 ml .ROUTE .STK- MED ONE Stop: 08/10/17 08:00 Last Admin: 08/10/17 11:53 Dose: 30 ml Cefazolin Sodium (Ancef) Confirm Administered Dose 2 gm .ROUTE .STK-MED ONE Stop: 08/10/17 08:22 Last Admin: 08/10/17 11:48 Dose: 2 gm Cefazolin Sodium (Ancef) Confirm Administered Dose 2 gm .ROUTE .STK-MED ONE Stop: 08/10/17 08:00 Morphine Sulfate 8 mg/Epinephrine HCl 0.3 mg/Cefuroxime Sodium 750 mg/Ketorolac Tromethamine 30 mg/Sodium Chloride 27.9 ml 0 mg .XX ONETIME ONE Stop: 08/10/17 10:01 Last Admin: 08/10/17 11:52 Dose: 788.3 mg Cyclobenzaprine HCl (Flexeril) 10 mg PO TID PRN PRN Reason: Spasms Last Admin: 08/11/17 08:07 Dose: 10 mg Diphenhydramine HCl (Benadryl) 25 mg IVPUSH Q6H PRN PRN Reason: itching Stop: 08/10/17 16:00 Docusate Sodium (Colace) 100 mg PO BID [facility] Last Admin: 08/11/17 08:02 Dose: 100 mg Famotidine (Pepcid) 20 mg PO Q12H [facility] Last Admin: 08/10/17 15:22 Dose: Not Given Fentanyl (Sublimaze) Confirm Administered Dose 100 mcg .ROUTE .STK-MED ONE Stop: 08/10/17 08:23 Fentanyl (Sublimaze) 50 mcg IVPUSH Q5M PRN PRN Reason: pain Stop: 08/10/17 16:00 Last Admin: 08/10/17 13:30 Dose: 50 mcg Lactated Ringer's (Ringers, Lactated) 1,000 mls @ 125 mls/hr IV ASDIRECTED [facility] Stop: 08/10/17 23:00 Last Admin: 08/10/17 08:25 Dose: 125 mls/hr Cefazolin Sodium/Dextrose 2 gm (/ Premix) 50 mls @ 100 mls/hr IV Q8H [facility] Stop: 08/11/17 08:59 Last Admin: 08/11/17 08:02 Dose: 100 mls/hr Lactated Ringer's (Ringers, Lactated) Confirm Administered Dose 1,000 mls @ as directed .ROUTE .STK-MED ONE Stop: 08/10/17 12:15 Lactated Ringer's (Ringers, Lactated) Confirm Administered Dose 1,000 mls @ as directed .ROUTE .STK-MED ONE Stop: 08/10/17 12:15 Iodine (Iodine 2% Mild Tincture) Confirm Administered Dose 30 ml .ROUTE .STK- MED ONE Stop: 08/10/17 08:00 Last Admin: 08/10/17 11:46 Dose: 18 ml Ketorolac Tromethamine (Toradol) 15 mg IVPUSH Q6H PRN PRN Reason: Pain Last Admin: 08/11/17 06:23 Dose: 15 mg Ketorolac Tromethamine (Toradol) Confirm Administered Dose 30 mg .ROUTE .STK- MED ONE Stop: 08/10/17 12:15 Lidocaine/Sodium Bicarbonate (Buffered Lidocaine 1% In Ns 8.4%) 0.25 ml IDERM ONETIME PRN PRN Reason: Prior to IV Start Stop: 08/10/17 18:00 Last Admin: 08/10/17 08:24 Dose: 0.25 ml Magnesium Hydroxide (Milk Of Magnesia) 30 ml PO BID PRN PRN Reason: Constipation Midazolam HCl (Versed 1 Mg/Ml) Confirm Administered Dose 2 mg .ROUTE .STK-MED ONE Stop: 08/10/17 08:23 Morphine Sulfate (Morphine) 2 mg IVPUSH Q2H PRN PRN Reason: Breakthrough Pain Morphine Sulfate (Duramorph Pf) Confirm Administered Dose 1 mg .ROUTE .STK-MED ONE Stop: 08/10/17 08:47 Multivitamins (Thera) 1 each PO DAILY [facility] Last Admin: 08/11/17 08:03 Dose: 1 each Naloxone HCl (Narcan) 0.1 mg IVPUSH Q5M PRN PRN Reason: Oversedation Ondansetron HCl (Zofran) 4 mg IVPUSH Q6H PRN PRN Reason: Nausea/Vomiting Ondansetron HCl (Zofran) Confirm Administered Dose 4 mg .ROUTE .STK-MED ONE Stop: 08/10/17 08:22 Oxycodone HCl (Oxycontin) 10 mg PO ONETIME ONE Stop: 08/10/17 09:16 Last Admin: 08/10/17 10:02 Dose: 10 mg Oxycodone/Acetaminophen (Percocet 325-5 Mg) 1 - 2 tab PO Q4H PRN PRN Reason: Pain Last Admin: 08/11/17 10:57 Dose: 2 tab Pantoprazole Sodium (Protonix) 40 mg PO DAILY [facility] Last Admin: 08/11/17 08:03 Dose: 40 mg Polyethylene Glycol (Miralax) 17 gm PO DAILY PRN PRN Reason: Constipation Pregabalin (Lyrica) 50 mg PO DAILY [facility] Last Admin: 08/11/17 08:03 Dose: 50 mg Propofol (Diprivan 20 Ml) Confirm Administered Dose 200 mg .ROUTE .STK-MED ONE Stop: 08/10/17 08:23 Propofol (Diprivan 20 Ml) Confirm Administered Dose 400 mg .ROUTE .STK-MED ONE Stop: 08/10/17 09:18 Pseudoephedrine HCl (Sudogest) 60 mg PO DAILY PRN PRN Reason: Allergies Senna (Senna) 8.6 mg PO BID PRN PRN Reason: Constipation Sertraline HCl (Zoloft) 100 mg PO DAILY [facility] Last Admin: 08/11/17 08:02 Dose: 100 mg Sodium Chloride (Saline Flush) 10 ml FLUSH ASDIRECTED PRN PRN Reason: Keep Vein Open Stop: 08/10/17 18:00 Tranexamic Acid (Cyklokapron) Confirm Administered Dose 1,000 mg .ROUTE .STK- MED ONE Stop: 08/10/17 08:00 Last Admin: 08/10/17 11:54 Dose: 1,000 mg Vancomycin HCl (Vancomycin) Confirm Administered Dose 1 gm .ROUTE .STK-MED ONE Stop: 08/10/17 08:00 Last Admin: 08/10/17 11:55 Dose: 1 gm
--- NOTE | 2017-08-13 07:42 | OR ---
DATE OF OPERATION: 08/10/2017 SURGEON: Jc De La Rosa MD OPERATION PERFORMED: Left total hip arthroplasty. PREOPERATIVE DIAGNOSIS: Left hip osteoarthrosis. POSTOPERATIVE DIAGNOSIS: Left hip osteoarthrosis. ANESTHESIA: Local MAC with spinal. ANESTHESIA PROVIDER: Jocelyn Clayton. ASSISTANTS: Savannah Emmanuel PA-C, and Sunitha Kohli LPN. ESTIMATED BLOOD LOSS: 300 mL. COMPLICATIONS: None. CONDITION: Stable. IMPLANTS: 1. [place] size 54 mm solid Tritanium acetabular cup. 2. Juarez size 5 Accolade II stem. 3. Juarez size 36 mm ceramic femoral head. DESCRIPTION OF PROCEDURE: The patient was identified in the preoperative holding area, where proper site was marked and identified by the surgeon. The patient was taken back to the operating theater, where after adequate anesthesia, the patient was placed in a right lateral decubitus position. Axillary roll was placed. All bony prominences were well padded. The pegs were then placed and well padded. At this time, the patient's gluteal fold was parallel to the floor. Left hip was then sterilely prepped and draped in the usual sterile fashion. OR-wide time- out was performed. The patient received 2 grams of IV Ancef. At this time, an incision was made centered over the greater trochanter. This was taken down to the IT band and gluteal fascia, which was incised along the incisional length. Short external rotators were then identified, from the piriformis tendon all the way down to the level of lesser trochanter. The short external rotators were taken down along with capsulotomy. Hip was then dislocated. Neck cut was then completed and found to be adequate. Attention was turned to the acetabulum. Anterior and posterior acetabular retractors were then placed. The pulvinar along with remaining labrum were resected. Starting with a 47 reamer, I was able to ream up to a 54, which was found to have good bite. At this time, a 54- mm solid Tritanium acetabular cup was impacted into place, in roughly 20 degrees of anteversion and 45 degrees of abduction. It had a secure fixation. At this time, a 36-mm 10-degree elevated liner was impacted into place. Attention was turned to the femur. Box chisel was used out laterally. Starter awl was placed down the canal. Starting with the 0 broach, I was able to broach up to a size 5, which was found to be rotationally and vertically stable. A 36 +0 head was then placed, and the hip was relocated. The patient was found to have adequate leg length denominational and had stability throughout range of motion with no signs of instability. The patient then had the hip dislocated with the use of a bone hook. At this time, a size 5 Accolade II stem was impacted into place along with a 36 +0 ceramic head. Hip was then relocated again. #5 Ethibond suture was used for closure of the short external rotators and capsule. 1 L dilute Betadine solution was then irrigated through the hip along with 3 L of pulse lavage and irrigation with Ancef. Topical tranexamic acid as well as vancomycin powder was then placed and #2 barbed sutures were used for closure of the IT band and gluteal fascia. 2-0 Vicryl was used subcutaneously and Prineo was used for the skin. The patient was sent to the PACU in a stable condition. She tolerated the procedure well. MMODAL /[id number]
== END 2017-08-11 14:30 | disposition home or self-care (01) | DRG 470 ==
LOC: JD.SDS 07:46 → JD.MS 07:49 → JD.SDS 10:15
PROVIDERS: ADMIT Orthopaedic Surgery; ATTEND Orthopaedic Surgery
PROC: 0SRB0JZ Replacement of Left Hip Joint with Synthetic Substitute, Open Approach (ICD-10-PCS; principal; 2017-08-10)
PROC: 3E0U029 Introduction of Other Anti-infective into Joints, Open Approach (ICD-10-PCS; 2017-08-10)
DX: M16.12 Unilateral primary osteoarthritis, left hip (principal); R53.83 Other fatigue; J30.2 Other seasonal allergic rhinitis; K59.09 Other constipation; F32.9 Major depressive disorder, single episode, unspecified; K21.9 Gastro-esophageal reflux disease without esophagitis; M99.01 Segmental and somatic dysfunction of cervical region; H54.7 Unspecified visual loss; Z87.440 Personal history of urinary (tract) infections; Z79.82 Long term (current) use of aspirin; Z79.899 Other long term (current) drug therapy; Z88.8 Allergy status to other drugs, medicaments and biological substances; Z87.891 Personal history of nicotine dependence; Z96.641 Presence of right artificial hip joint
CPT/HCPCS: 36415; 73501-26-LT; 73501-LT; 80053; 85027; 86850; 86900; 86901; 87641; 94762; 97110-GP; 97116-GP; 97162-GP; 97165-GO; 97535-GO; A9270-GY; C1776; J0171; J0690; J0697; J1885; J2250; J2270; J2274; J2405; J2704; J3010; J3370; J3490; J7120

== ENCOUNTER 2017-09-17 10:51 | Inpatient (IN) | payer OTHER ==
[~2017-09-17 10:51] MED LIST changes: -Bisacodyl 5 MG Tab PO PRN; -Famotidine 20 MG Tab PO SCH; -Magnesium Hydroxide 400 MG/5 ML Susp 30 ML Cup PO PRN; -Morphine 2 MG/ML Syringe IVPUSH PRN; -Naloxone 0.4 MG/ML SDV IVPUSH PRN; -Ondansetron 4 MG/2 ML SDV IVPUSH PRN; -Sennosides 8.6 MG Tab PO PRN
--- NOTE | 2017-09-17 12:31 | PCM.PREANE ---
Preanesthetic Assessment - Anesthesia/Transfusion/Family Hx Anesthesia History: Prior Anesthesia Without Reaction Family History of Anesthesia Reaction: No Transfusion History: No Prior Transfusion(s) - Review of Systems General: No Symptoms Pulmonary: No Symptoms Cardiovascular: No Symptoms Gastrointestinal: No Symptoms Neurological: No Symptoms Other: Reports: Depression - Physical Assessment NPO Status Date: 09/16/17 NPO Status Time: 20:00 Pulse: 79 O2 Sat by Pulse Oximetry: 94 Respiratory Rate: 16 Blood Pressure: 123/81 Temperature: 37.2 C Vital Signs: Last Vital Signs Temp 37.2 C 09/17/17 11:00 Pulse 79 09/17/17 11:00 Resp 16 09/17/17 11:00 BP 123/81 09/17/17 11:00 Pulse Ox 94 L 09/17/17 11:00 Height: 1.75 m Weight: 90.945 kg ASA Class: 2 Mental Status: Alert & Oriented x3 Airway Class: Mallampati = 2 Dentition: Reports: Normal Dentition Thyro-Mental Finger Breadths: 2 Mouth Opening Finger Breadths: 2 ROM/Head Extension: Full Lungs: Clear to Auscultation, Normal Respiratory Effort Cardiovascular: Regular Rate, Regular Rhythm, No Murmurs - Lab Values: on chart - Imaging/EKG Impressions: on chart - Allergies Allergies/Adverse Reactions: Allergies Allergy/AdvReac Type Severity Reaction Status Date / Time amantadine Allergy Rash Verified 08/07/17 13:04 - Anesthesia Plan Pre-Op Medication Ordered: None - Acknowledgements Anesthesia Type Planned: General Anesthesia Pt an Appropriate Candidate for the Planned Anesthesia: Yes Alternatives and Risks of Anesthesia Discussed w Pt/Guardian: Yes Pt/Guardian Understands and Agrees with Anesthesia Plan: Yes PreAnesthesia Questionnaire HEENT History: Reports: Impaired Vision Cardiovascular History: Reports: None Respiratory History: Reports: None Gastrointestinal History: Reports: Chronic Constipation, GERD Genitourinary History: Reports: UTI, Recurrent CARTOON ARTIST History: Reports: Musculoskeletal History: Reports: Osteoarthritis, Other (See Below) Other Musculoskeletal History: tendinitis, plantar fasciititis Neurological History: Reports: Other (See Below) Other Neuro History: cervical region somatic dysfunction Psychiatric History: Reports: Depression, Other (See Below) Other Psychiatric History: fatigue Endocrine/Metabolic History: Reports: Obesity/BMI 30+ Hematologic History: Reports: None Immunologic History: Reports: None Oncologic (Cancer) History: Reports: None Dermatologic History: Reports: None - Past Surgical History Head Surgeries/Procedures: Reports: None HEENT Surgical History: Reports: Cataract Surgery Cardiovascular Surgical History: Reports: None Respiratory Surgical History: Reports: None GI Surgical History: Reports: Colonoscopy Female Surgical History: Reports: Tubal Ligation Male Surgical History: Reports: None Endocrine Surgical History: Reports: None Neurological Surgical History: Reports: None Musculoskeletal Surgical History: Reports: Hip Replacement Oncologic Surgical History: Reports: None Dermatological Surgical History: Reports: None - SUBSTANCE USE Smoking Status *Q: Former Smoker Tobacco Use Within Last Twelve Months: No Second Hand Smoke Exposure: No Days Per Week of Alcohol Use: 0 Number of Drinks Per Day: 0 Total Drinks Per Week: 0 Recreational Drug Use History: No - HOME MEDS Home Medications: Home Meds Esomeprazole [NexIUM] 20 mg PO DAILY 08/07/17 [History] Multivitamin [Daily Maritza] 1 tab PO DAILY 08/07/17 [History] Polyethylene Glycol 3350 [MiraLAX] 1 dose PO DAILY PRN 08/07/17 [History] Pseudoephedrine [Sudogest] 60 mg PO DAILY PRN 08/07/17 [History] Sertraline HCl 100 mg PO DAILY 08/07/17 [History] Magnesium 250 mg PO DAILY 08/10/17 [History] Acetaminophen/oxyCODONE [Percocet 325-5 MG] 1 - 2 tab PO Q6H PRN #60 tablet 07/26 [Rx] Bisacodyl [Dulcolax] 5 mg PO DAILY PRN tablet 08/11/17 [Rx] Cyclobenzaprine [Flexeril] 10 mg PO TID PRN #40 tablet 08/11/17 [Rx] Docusate Sodium [Colace] 100 mg PO BID cap 08/11/17 [Rx] Magnesium Hydroxide [Milk of Magnesia] 30 ml PO BID PRN cup 08/11/17 [Rx] Sennosides [Senna] 8.6 mg PO BID PRN tablet 08/11/17 [Rx] Aspirin [Ecotrin] 325 mg PO BID #84 tab.ec 09/17/17 [Rx] - CURRENT (IN HOUSE) MEDS Current Meds: Current Medications Lactated Ringer's (Ringers, Lactated) 1,000 mls @ 125 mls/hr IV ASDIRECTED SHANKAR Stop: 09/17/17 23:00 Last Admin: 09/17/17 11:30 Dose: 125 mls/hr Lidocaine/Sodium Bicarbonate (Buffered Lidocaine 1% In Ns 8.4%) 0.25 ml IDERM ONETIME PRN PRN Reason: Prior to IV Start Stop: 09/17/17 18:00 Last Admin: 09/17/17 11:29 Dose: 0.25 ml Sodium Chloride (Saline Flush) 10 ml FLUSH ASDIRECTED PRN PRN Reason: Keep Vein Open Stop: 09/17/17 18:00 Discontinued Medications Bupivacaine HCl (Marcaine 0.25%) Confirm Administered Dose 30 ml .ROUTE .STK- MED ONE Stop: 09/17/17 11:42 Cefazolin Sodium (Ancef) Confirm Administered Dose 2 gm .ROUTE .STK-MED ONE Stop: 09/17/17 11:41 Iodine (Iodine 2% Mild Tincture) Confirm Administered Dose 30 ml .ROUTE .STK- MED ONE Stop: 09/17/17 11:42 Tranexamic Acid (Cyklokapron) Confirm Administered Dose 1,000 mg .ROUTE .STK- MED ONE Stop: 09/17/17 11:41 Vancomycin HCl (Vancomycin) Confirm Administered Dose 1 gm .ROUTE .STK-MED ONE Stop: 09/17/17 11:41
[2017-09-17] MEDS ORDERED: fentaNYL 100 MCG/2 ML SDV ONE (12:45)
[2017-09-17] MEDS ORDERED: Midazolam 1 MG/ML 2 ML SDV ONE (12:45)
[2017-09-17] MEDS ORDERED: Propofol 200 MG/20 ML SDV ONE ×2 (12:45→13:52)
[2017-09-17] MEDS ORDERED: Lidocaine 1% 2 ML ONE (12:51)
[2017-09-17] MEDS ORDERED: ceFAZolin 1 GM Vial ONE (13:17)
[2017-09-17] MEDS ORDERED: HYDROmorphone 0.5 MG/0.5 ML Syringe ONE ×5 (13:26→14:58)
[2017-09-17] MEDS ORDERED: Dexamethasone 4 MG/ML 5 ML MDV ONE (13:26)
[2017-09-17] MEDS ORDERED: Ondansetron 4 MG/2 ML SDV ONE (13:26)
[2017-09-17] MEDS ORDERED: Ketamine 500 mg/10 ML MDV ONE (13:51)
[2017-09-17] MEDS ORDERED: Lactated Ringers 1,000 ML ONE ×3 (14:06→15:40)
[2017-09-17] MEDS: ceFAZolin 1 GM Vial ONE ×2 (14:12→15:03)
[2017-09-17] MEDS: Iodine/Sodium Iodide 2% Tincture 30 ML Bottle ONE ×2 (14:13→15:02)
[2017-09-17] MEDS: Bupivacaine 0.25% 30 ML SDV ONE ×2 (14:14→15:08)
[2017-09-17] MEDS: Vancomycin 1 GM SDV ONE ×2 (14:14→15:10)
[2017-09-17] MEDS ORDERED: Neostigmine Methylsulfate 1 MG/ML 5 ML Syringe ONE (14:35)
[2017-09-17] MEDS ORDERED: ePHEDrine 50 MG/ML SDV ONE ×2 (14:46→15:11)
[2017-09-17] MEDS ORDERED: fentaNYL 100 MCG/2 ML SDV IVPUSH PRN (15:09)
[2017-09-17] MEDS ORDERED: diphenhydrAMINE 50 MG/ML SDV IVPUSH PRN (15:09)
[2017-09-17] MEDS ORDERED: Ondansetron 4 MG/2 ML SDV IVPUSH PRN ×2 (15:09→17:38)
[2017-09-17] MEDS ORDERED: HYDROmorphone 0.5 MG/0.5 ML Syringe IVPUSH ONE (15:19)
[2017-09-17] MEDS ORDERED: Phenylephrine/Normal Saline 100 MCG/ML 10 ML Syringe ONE (15:40)
[2017-09-17] MEDS ORDERED: Cyclobenzaprine 10 MG Tab PO PRN (15:55)
[2017-09-17] MEDS ORDERED: Morphine 2 MG/ML Syringe IVPUSH PRN (15:56)
[2017-09-17] MEDS ORDERED: Sennosides 8.6 MG Tab PO PRN ×2 (15:56→16:02)
[2017-09-17] MEDS ORDERED: Bisacodyl 5 MG Tab PO PRN ×2 (15:56→16:02)
[2017-09-17] MEDS ORDERED: Magnesium Hydroxide 400 MG/5 ML Susp 30 ML Cup PO PRN ×2 (15:56→16:02)
[2017-09-17] MEDS ORDERED: Famotidine 20 MG Tab PO SCH (16:00)
[2017-09-17] MEDS ORDERED: Polyethylene Glycol 3350 Powder 17 GM Packet PO PRN (16:02)
[2017-09-17] MEDS ORDERED: Pseudoephedrine 30 MG Tab PO PRN (16:02)
--- NOTE | 2017-09-17 16:09 | PCM.POSTAN ---
POST ANESTHESIA ASSESSMENT - MENTAL STATUS Mental Status: Alert, Oriented - VITAL SIGNS Pulse Rate: 89 SaO2: 98 Resp Rate: 10 Blood Pressure: 112/80 Temperature: 36.8 C - RESPIRATORY Respiratory Status: Respiratory Rate WNL, Airway Patent, O2 Saturation Stable, Supplemental Oxygen - CARDIOVASCULAR CV Status: Pulse Rate WNL, Blood Pressure Stable - GASTROINTESTINAL GI Status: No Symptoms - PAIN Pain Score: 0 - POST OP HYDRATION Hydration Status: Adequate & Stable
[2017-09-17] MEDS ORDERED: Ondansetron 4 MG in Sodium Chloride 0.9% 50 ML IV PRN (17:11)
[2017-09-17] MEDS ORDERED: ceFAZolin 2 GM in Premix Bag 1 BAG IV SCH (19:00)
[2017-09-17] MEDS: Ketorolac 15 MG/ML SDV IVPUSH PRN (19:50)
[2017-09-17] MEDS: oxyCODONE 5 MG Tab PO PRN ×2 (19:52→23:49)
[2017-09-17] MEDS: ceFAZolin 2 GM in Premix Bag 1 BAG IV SCH (20:34)
[2017-09-17] MEDS: Docusate Sodium 100 MG Cap PO SCH (20:39)
[2017-09-17] MEDS ORDERED: Docusate Sodium 100 MG Cap PO SCH (21:00)
--- NOTE | 2017-09-17 22:29 | PCM.OPNOTE ---
- General Post-Op/Procedure Note Date of Surgery/Procedure: 09/17/17 Operative Procedure(s): revision left total hip arthroplasty femoral stem Pre Op Diagnosis: left total hip arthroplasty femoral stem subsidence with fracture Post-Op Diagnosis: Same Anesthesia Technique: General ET Tube, Local Primary Surgeon: Jc De La Rosa Anesthesia Provider: Nunu Neely Lamp Cleaner: Savannah Emmanuel Lamp Cleaner: Sunitha Kohli EBL in mLs: 650 Complications: None Condition: Good
--- NOTE | 2017-09-17 23:09 | OR ---
DATE OF OPERATION: 09/17/2017 SURGEON: Jc De La Rosa MD OPERATION PERFORMED: Revision of left total hip arthroplasty femoral stem. PREOPERATIVE DIAGNOSIS: Left total hip arthroplasty femoral stem subsidence with fracture. POSTOPERATIVE DIAGNOSIS: Left total hip arthroplasty femoral stem subsidence with fracture. ANESTHESIA: General endotracheal intubation with local. ANESTHESIA PROVIDER: Yusef Robledo. ASSISTANTS: 1. Savannah Emmanuel PA-C. 2. Sunitha Kohli LPN. ESTIMATED BLOOD LOSS: 650 mL. COMPLICATIONS: None. CONDITION: Stable. DESCRIPTION OF PROCEDURE: The patient was identified in the preop holding area. Proper site was marked and identified by the surgeon. The patient was taken back to the operating theater where after adequate anesthesia, the patient was placed in a right lateral decubitus position, axillary roll was placed, and bony prominences were well padded. Pegs were then placed and well padded. The patient's gluteal fold was parallel to the floor. At this time, left hip was then sterilely prepped and draped in the usual sterile fashion. OR time-out was performed. The patient received 2 g IV Ancef. At this time, previous incision was utilized. The patient did have a small stitch abscess noted at the very inferior portion of the incision which was ellipsed out at this time. Incision was taken down to the IT band and gluteal fascia. The previous sutures were removed. At this time, it was incised along the incisional length. This was taken down to the previous capsular repair and the Ethibond suture that was used to be there was removed. At this time, the hip was dislocated. It was noted that the femoral stem had subsided significantly. There was a small crack noted just at the femoral neck cut, but it did not seem to appear to affect the lesser trochanter at this time, but it was difficult to visualize. At this time, the extractor handle was placed for the femoral stem and the femoral stem was removed en bloc with the femoral head. At this time, it was noted that there was a small crack that propagated roughly to the level of lesser trochanter. At this time, it was decided that we would do a press-fit distal as well as proximal stem. At this time, we started with conical reamers, and starting with a 10 conical reamer, I was able to ream up to a 16.5 for a 17 mm distal femoral stem for diaphyseal fit. At this time, the proximal broaches were then utilized and I was able to broach up to a size 11 which was found to be rotationally and vertically stable. A trial implant was then placed. We did get C-arm fluoroscopy to be utilized to make sure there was no propagation of the crack past the diaphyseal fit and make sure we had 2 cortical widths below the level of the fracture, but at this time, with C-arm fluoroscopy, it did not show any definitive fracture while trialing. At this time, we continued with the use of a press-fit diaphyseal stem and there was no gross mobilization of the calcar noted, although there was moderate amount of gapping noted at the femoral neck where that small crack was. The proximal broach handle did have good fixation with no signs of loosening. At this time, it was decided we would use a Umbarger coated monoblock stem, it was 11 mm proximally and 17 mm distally for press-fit fixation. At this time, the 155 mm monoblock Umbarger stem was then opened and then this was impacted into place and was found to have very good fixation distally in the diaphysis and had good wedge fit throughout proximally and distally. At this time, there were no signs of instability. There was only a minor amount of gapping at the femoral neck, but there was otherwise no gross instability with calcar noted. At this time, it was decided against utilizing cables. The hip was then relocated with a 36 mm -5 femoral head. This was then brought through range of motion and found to be stable. At this time, adequate saline was irrigated through the wound along with 1 L dilute Betadine solution. Topical tranexamic acid as well as vancomycin powder was placed. A #2 barbed suture was used for closure of the IT band and gluteal fascia, 2-0 Vicryl was used subcutaneously, and Prineo was used for the skin. The patient tolerated the procedure well and sent to PACU in stable condition. CHOLO /[id number]
[2017-09-18] MEDS: oxyCODONE 5 MG Tab PO PRN ×4 (05:37→17:45)
[2017-09-18] MEDS: Cyclobenzaprine 10 MG Tab PO PRN ×2 (05:41→14:06)
[2017-09-18] MEDS: ceFAZolin 2 GM in Premix Bag 1 BAG IV SCH ×2 (05:42→14:28)
[2017-09-18] MEDS ORDERED: Sodium Chloride 0.9% 250 ML IV SCH ×2 (06:00→11:15)
[2017-09-18] MEDS ORDERED: Sodium Chloride 0.9% 1,000 ML ONE (06:08)
--- NOTE | 2017-09-18 06:29 | PCM.CONS ---
H&P History of Present Illness - General Date of Service: 09/18/17 Admit Problem/Dx: Admission Diagnosis/Problem Admission Diagnosis/Problem Pain in hip region after total hip replacement Source of Information: Patient, Old Records, Provider, RN, RN Notes Reviewed History Limitations: Reports: No Limitations - History of Present Illness Initial Comments - Free Text/Narative: Pilar Palacios is a 62 yo female patient of Dr. De La Rosa who is post-operative day 1 of revision of left femoral stem. She underwent left JAMARCUS on 08/10/17. Hospital medicine was consulted for post-operative medical care. At this time she is resting comfortably in bed. Pain is controlled. She denies any chest pain, shortness of breath, palpitations, nausea, or vomiting. She did have a hypotensive episode this AM which resolved after a fluid bolus. She carries a history of: Impaired vision, chronic constipation, GERD, recurrent UTIs, osteoarthritis, cervical region somatic dysfunction, depression, obesity. She is a former smoker. She is a full code. Her primary care provider is Dr. Arian Horn. - Related Data Allergies/Adverse Reactions: Allergies Allergy/AdvReac Type Severity Reaction Status Date / Time amantadine Allergy Rash Verified 08/07/17 13:04 oseltamivir [From Tamiflu] AdvReac Numbness Verified 09/18/17 07:21 Home Medications: Home Meds Esomeprazole [NexIUM] 20 mg PO DAILY 08/07/17 [History] Multivitamin [Daily Maritza] 1 tab PO DAILY 08/07/17 [History] Polyethylene Glycol 3350 [MiraLAX] 1 dose PO DAILY PRN 08/07/17 [History] Pseudoephedrine [Sudogest] 60 mg PO DAILY PRN 08/07/17 [History] Sertraline HCl 100 mg PO DAILY 08/07/17 [History] Magnesium 250 mg PO DAILY 08/10/17 [History] Acetaminophen/oxyCODONE [Percocet 325-5 MG] 1 - 2 tab PO Q6H PRN #60 tablet 07/26 [Rx] Bisacodyl [Dulcolax] 5 mg PO DAILY PRN tablet 08/11/17 [Rx] Cyclobenzaprine [Flexeril] 10 mg PO TID PRN #40 tablet 08/11/17 [Rx] Docusate Sodium [Colace] 100 mg PO BID cap 08/11/17 [Rx] Magnesium Hydroxide [Milk of Magnesia] 30 ml PO BID PRN cup 08/11/17 [Rx] Sennosides [Senna] 8.6 mg PO BID PRN tablet 08/11/17 [Rx] Aspirin [Ecotrin] 325 mg PO BID #84 tab.ec 09/17/17 [Rx] Past Medical History HEENT History: Reports: Impaired Vision Cardiovascular History: Reports: None Respiratory History: Reports: None Gastrointestinal History: Reports: Chronic Constipation, GERD Genitourinary History: Reports: None ARCHAEOLOGIST History: Reports: Musculoskeletal History: Reports: Osteoarthritis, Other (See Below) Other Musculoskeletal History: tendinitis, plantar fasciititis Neurological History: Reports: Other (See Below) Other Neuro History: cervical region somatic dysfunction Psychiatric History: Reports: Depression Other Psychiatric History: fatigue Endocrine/Metabolic History: Reports: None Hematologic History: Reports: None Immunologic History: Reports: None Oncologic (Cancer) History: Reports: None Dermatologic History: Reports: None - Past Surgical History Head Surgeries/Procedures: Reports: None HEENT Surgical History: Reports: Cataract Surgery Cardiovascular Surgical History: Reports: None Respiratory Surgical History: Reports: None GI Surgical History: Reports: Colonoscopy Female Surgical History: Reports: Tubal Ligation Endocrine Surgical History: Reports: None Neurological Surgical History: Reports: None Musculoskeletal Surgical History: Reports: Hip Replacement Oncologic Surgical History: Reports: None Dermatological Surgical History: Reports: None Social & Family History - Family History Family Medical History: Noncontributory - Tobacco Use Smoking Status *Q: Former Smoker Used Tobacco, but Quit: Yes Month/Year Tobacco Last Used: 1987 Second Hand Smoke Exposure: No - Caffeine Use Caffeine Use: Reports: Coffee Other Caffeine Use: Pot/day - Alcohol Use Days Per Week of Alcohol Use: 0 Number of Drinks Per Day: 0 Total Drinks Per Week: 0 - Recreational Drug Use Recreational Drug Use: No H&P Review of Systems - Review of Systems: Review Of Systems: See Below General: Reports: No Symptoms HEENT: Reports: No Symptoms Pulmonary: Reports: No Symptoms Cardiovascular: Reports: No Symptoms Gastrointestinal: Reports: No Symptoms Genitourinary: Reports: No Symptoms Musculoskeletal: Reports: No Symptoms, Leg Pain Skin: Reports: No Symptoms Psychiatric: Reports: No Symptoms Neurological: Reports: No Symptoms Hematologic/Lymphatic: Reports: No Symptoms Immunologic: Reports: No Symptoms Exam - Exam Exam: See Below - Vital Signs Vital Signs: Last Vital Signs Temp 97.9 F 09/18/17 06:07 Pulse 84 09/18/17 06:18 Resp 16 09/18/17 06:07 BP 107/58 L 09/18/17 06:18 Pulse Ox 96 09/18/17 06:18 Weight: 208 lb 11.2 oz - Exam Quality Assessment: Supplemental Oxygen, DVT Prophylaxis General: Alert, Oriented, Cooperative HEENT: Conjunctiva Clear, EACs Clear, EOMI, Hearing Intact, Mucosa Moist & [place] , Nares Patent, Posterior Pharynx Clear, PERRLA Neck: Supple, Trachea Midline. No: JVD Lungs: Clear to Auscultation, Normal Respiratory Effort Cardiovascular: Regular Rate, Regular Rhythm GI/Abdominal Exam: Normal Bowel Sounds, Soft, Non-Tender, No Organomegaly, No Distention, No Abnormal Bruit, No Mass, Pelvis Stable (Female) Exam: Deferred Rectal (Female) Exam: Deferred Back Exam: Normal Inspection, Full Range of Motion Extremities: No Pedal Edema, Normal Capillary Refill, Leg Pain, Limited Range of Motion, Other (Cameron bandage in place on left leg. Bandage is dry and intact. Cooling pack in place ) Peripheral Pulses: 2+: Radial (L), Radial (R), Posterior Tibial (L), Posterior Tibial (R), Dorsalis Pedis (L), Dorsalis Pedis (R) Skin: Warm, Dry, Intact Neurological: Cranial Nerves Intact (grossly ) Neuro Extensive - Mental Status: Alert, Oriented x3, Normal Mood/Affect, Normal Cognition Psychiatric: Alert, Normal Affect, Normal Mood - Patient Data Lab Results Last 24 hrs: Laboratory Results - last 24 hr 09/17/17 09/18/17 Range/Units 11:40 05:54 WBC 8.99 (3.98-10.04) K/mm3 RBC 3.10 L (3.98-5.22) M/mm3 Hgb 9.1 L (11.2-15.7) gm/L Hct 28.3 L (34.1-44.9) % MCV 91.3 (79.4-94.8) fl MCH 29.4 (25.6-32.2) pg MCHC 32.2 (32.2-35.5) g/dl RDW Std Deviation 45.7 (36.4-46.3) fL Plt Count 298 (182-369) K/mm3 MPV 9.6 (9.4-12.3) fl Blood Type B POSITIVE Gel Antibody Screen Negative Result Diagrams: 09/18/17 05:54 09/18/17 06:07 Consult PN Assessment/Plan POD#: 1 (1) Cervical (neck) region somatic dysfunction SNOMED Code(s): 031226301 Code(s): M99.01 - SEGMENTAL AND SOMATIC DYSFUNCTION OF CERVICAL REGION Priority: Low Current Visit: No (2) Chronic UTI SNOMED Code(s): 191242689 Code(s): N39.0 - URINARY TRACT INFECTION, SITE NOT SPECIFIED Priority: Low Current Visit: No (3) GERD (gastroesophageal reflux disease) SNOMED Code(s): 389810392 Code(s): K21.9 - GASTRO-ESOPHAGEAL REFLUX DISEASE WITHOUT ESOPHAGITIS Priority: Medium Current Visit: No Qualifiers: Esophagitis presence: esophagitis presence not specified Qualified Code(s) : K21.9 - Gastro-esophageal reflux disease without esophagitis (4) Other specified depressive episodes SNOMED Code(s): 16563128 Code(s): F32.89 - OTHER SPECIFIED DEPRESSIVE EPISODES Priority: Low Current Visit: No (5) Recent surgical procedure on lower extremity SNOMED Code(s): 513567947 Code(s): Z98.890 - OTHER SPECIFIED POSTPROCEDURAL STATES Priority: Medium Current Visit: Yes (6) S/P total hip arthroplasty SNOMED Code(s): 051135983316, 960233221787 Code(s): Z96.649 - PRESENCE OF UNSPECIFIED ARTIFICIAL HIP JOINT Priority: High Current Visit: No Qualifiers: Laterality: left Qualified Code(s): Z96.642 - Presence of left artificial hip joint (7) Postoperative hypotension SNOMED Code(s): 208083783 Code(s): I95.89 - OTHER HYPOTENSION Priority: High Current Visit: Yes Problem List Initiated/Reviewed/Updated: Yes Plan: I/P: Acute: S/P revision of left femoral stem - post-operative day 1 -DVT prophylaxis and pain management per primary care team -PT/OT -IS/RT -Monitor oxygen saturation -Titrate oxygen as needed -Post-operative hypotension as below, otherwise vital signs stable -Monitor labs -Pre-operative Hgb was 12.2, today 9.1 -eGFR today >60 -Creatinine today 0.8 S/P left JAMARCUS on 06/28 -Management per primary care team Post-operative hypotension -Reportedly lost 650mL of blood during surgery -69/48 -250mL fluid bolus given -Responded well to fluid bolus -Monitor Chronic: Impaired Vision Chronic Constipation GERD Recurrent UTIs Osteoarthritis Cervical Region Somatic Dysfunction Depression Obesity Plan: CM for discharge planning GI prophylaxis Home medications as indicated Other orders as listed above Routine AM labs She is a full code. Her PCP is Dr. Arian De La Fuente Thank you for allowing us to participate in the care of this patient!! Requesting Provider: Dr. De La Rosa Date Consult Requested: 09/17/17 Reason for Consult: Post-operative medical management Patient History Reviewed: Yes Admission H&P Reviewed: Yes
[2017-09-18] MEDS ORDERED: Pantoprazole 40 MG Tab.CR PO SCH (07:00)
--- NOTE | 2017-09-18 07:43 | PCM48HPAN ---
Post Anesthesia Note - EVALUATION WITHIN 48HRS OF ANESTHETIC Vital Signs in Normal Range: Yes (hypotensive period resolved) Patient Participated in Evaluation: Yes Respiratory Function Stable: Yes Airway Patent: Yes Cardiovascular Function Stable: Yes Hydration Status Stable: Yes Pain Control Satisfactory: No (request RN to medicate) Nausea and Vomiting Control Satisfactory: Yes Mental Status Recovered: Yes Pulse Rate: 84 Resp Rate: 16 Temperature: 36.6 C Blood Pressure: 107/58
[2017-09-18] MEDS: Ketorolac 15 MG/ML SDV IVPUSH PRN (07:45)
[2017-09-18] MEDS ORDERED: Ondansetron 4 MG/2 ML SDV ONE (08:05)
[2017-09-18] MEDS ORDERED: Phenylephrine/Normal Saline 100 MCG/ML 10 ML Syringe ONE (08:08)
[2017-09-18] MEDS ORDERED: oxyCODONE 5 MG Tab PO PRN (08:23)
[2017-09-18] MEDS: traMADol 50 MG Tab PO PRN ×2 (08:32→15:54)
[2017-09-18] MEDS: Docusate Sodium 100 MG Cap PO SCH (08:33)
--- NOTE | 2017-09-18 08:52 | CR ---
Pelvis and left hip: AP view of the pelvis was obtained as well as lateral view of the left hip. Comparison: Prior pelvis exam of 08/10/17. Bilateral hip prosthesis are seen. Components are aligned. Underlying bony structures are intact. Nothing acute is appreciated. Impression: 1. Bilateral hip prosthesis. No acute bony abnormality is seen. Diagnostic code #2
[2017-09-18] MEDS ORDERED: Multivitamins,Therapeutic Tab PO SCH (09:00)
[2017-09-18] MEDS ORDERED: Aspirin 325 MG Tab.EC PO SCH (09:00)
[2017-09-18] MEDS ORDERED: Sertraline 50 MG Tab PO SCH (09:00)
[2017-09-18] MEDS ORDERED: Magnesium Oxide 400 MG Tab PO SCH (09:00)
--- NOTE | 2017-09-18 10:01 | CR ---
Left hip: Seven fluoroscopic spot views were obtained of the left hip utilizing C-arm device. Study shows replacement of femoral stem of left hip prosthesis. Final film shows alignment of the 2 prosthetic components. Fluoroscopy time is given as 19.7 seconds. Impression: 1. Procedural study showing revision of femoral component of hip prosthesis. Diagnostic code #2
--- NOTE | 2017-09-18 11:25 | PCM.SN ---
<Roland Connell - Last Filed: 09/18/17 11:14> - Free Text/Narrative Note: Was asked by primary care team to see Pilar today since she has been hypotensive. She was reportedly hypertensive during surgery and received quite a bit of fluid. Her EBL was 650mL. This AM her Hgb was 9.5 and it was 12.2 prior to surgery. She received a fluid bolus early today and responded well, however it did not last long. She will be given 2 units today. She was examined by Savannah Emmanuel this AM. She is otherwise doing well. She reports an increasing appetite and no shortness of breath, N/V/D, or palpitations. She has had a mild pain bilaterally at the lower costal margin. She otherwise reports no chest pain. She has urinated. She has been up walking. PT/OT was in to see her however due to generalized weakness and pain she was unable to participate. She reports they had said they will be back this afternoon. Vital signs have otherwise been stable and she is not on oxygen. Will see how she does after 2 units and she may possibly be discharged this evening or tomorrow AM, pending primary team approval. <Sheri Gramajo - Last Filed: 09/18/17 13:54> - Free Text/Narrative Note: Assistance with hypotension/fluid management; patient is otherwise stable, if asymptomatic--will likely go home today.
[2017-09-18] MEDS ORDERED: Furosemide 20 MG/2 ML VIAL IVPUSH ONE (14:00)
--- NOTE | 2017-09-18 16:13 | PCM.SN ---
- Free Text/Narrative Note: In to see Pilar, was handed off by Roland MORGAN at change of shift. She was given 1 unit of blood and is looking well. She denies any dizziness, shortness of breath, N/V/D, chest pain or palpitations. She has been up walking and worked with PT. Vital signs have been stable and she is not on oxygen. From a hospitalist stand point, she may be discharged this evening, pending primary team approval.
--- NOTE | 2017-09-22 17:03 | PCM.DCSUM1 ---
Discharge Summary - Hospital Course Brief History: Pilar is a 62 yo female who underwent revision of left JAMARCUS femoral stem s/p JAMARCUS. The femoral stem revision procedure was completed by Dr. De La Rosa on 09-17-2017 for history of stem subsidence with fracture. The pt's left JAMARCUS was completed on 08-10-2017. The pt was admitted to the Medical-Surgical Unit following revision surgery. Medical management was provided by the Hospitalist service. The pt was noted to be hypotensive at times during surgery and in the post-operative period and this improved with IV fluid bolus. The pt's Hgb on POD#1 was 9.1. On POD#1, 325mg ASA BID was initiated for VTE prophylaxis. SCDs and TEDs were also ordered. A Mepilex dressing was placed at the incision site at the time of surgery and remained clean and dry. The pt participated in P.T. and O.T. and progressed well. She followed the JAMARCUS precautions. The pt was allowed to place 50% of weight through the surgical leg. On POD#1, the pt was deemed appropriate to discharge to home with her . - Discharge Data Discharge Date: 09/18/17 Discharge Disposition: Home, Self-Care 01 Condition: Good - Patient Summary/Data Operative Procedure(s) Performed: revision left total hip arthroplasty femoral stem Consults: Consultations 09/17/17 15:54 OT Evaluation and Treatment [CONS] Routine PT Evaluation and Treatment [CONS] Routine 09/17/17 15:56 Consult to Physician [CONS] Routine - Patient Instructions Diet: Usual Diet as Tolerated Activity: Apply Ice, As Tolerated, Elevate Extremity, Full Weight Bearing Driving: Do Not Drive Showering/Bathing: May Shower Wound/Incision Care: Keep Operative Site/Wound Site Clean and Dry, Do NOT Change Dressing Notify Provider of: Fever, Increased Pain, Swelling and Redness, Drainage, Nausea and/or Vomiting Other/Special Instructions: Please get up and moving around every hour while awake. This helps to prevent blood clots. Please take 325mg aspirin twice daily - this also helps to prevent blood clots. The medication is being used for blood clot prevention and not for pain control, so please use the medication twice daily as directed. You may place 50% of your weight through the surgical limb. Use your walker. Please wear the BABITA hose during the day and you may remove them at night. Please schedule for P.T. Complete the P.T. exercises and stretches that were instructed in the Hospital. Please use the pain medication and muscle relaxant as needed. The medication may cause drowsiness and/or constipation. You could use a stool softener like docusate sodium or Colace 100mg twice daily and/or a laxative like Miralax daily for constipation. Contact your primary care provider for further instructions if you are constipated. Try to wean from use of the pain medication as soon as able. You can use Percocet 5/325mg 1 to 2 tablets every 6 hours as needed for pain. You may also use Ultram 50mg 1 tablet every 6 hours as needed for pain. Please contact the Clinic if your pain is not controlled. Please do not use Motrin, Advil, ibuprofen at this time as you are taking the aspirin twice daily. You can have Tylenol or acetaminophen as needed, however, please ensure you are not taking more than 4000 mg or 4 grams of Tylenol from all sources. One tablet of the Percoce has 325mg of acetaminophen. Use the incentive spirometer often. Please place ice to the hip often. Please elevate the limb to decrease swelling. Keep the Mepilex dressing in place until follow- up. Please notify the Clinic if the dressing is saturated or rolls down. Increase protein intake in your diet as this helps with healing. Please call [phone] with questions or concerns. - Discharge Plan Prescriptions/Med Rec: Aspirin [Ecotrin] 325 mg PO BID #84 tablet. traMADol [Ultram] 50 mg PO Q6H PRN #40 tablet PRN Reason: Pain Home Medications: Home Meds Esomeprazole [NexIUM] 20 mg PO DAILY 08/07/17 [History] Multivitamin [Daily Maritza] 1 tab PO DAILY 08/07/17 [History] Polyethylene Glycol 3350 [MiraLAX] 1 dose PO DAILY PRN 08/07/17 [History] Pseudoephedrine [Sudogest] 60 mg PO DAILY PRN 08/07/17 [History] Sertraline HCl 100 mg PO DAILY 08/07/17 [History] Magnesium 250 mg PO DAILY 08/10/17 [History] Acetaminophen/oxyCODONE [Percocet 325-5 MG] 1 - 2 tab PO Q6H PRN #60 tablet 07/26 [Rx] Bisacodyl [Dulcolax] 5 mg PO DAILY PRN tablet 08/11/17 [Rx] Cyclobenzaprine [Flexeril] 10 mg PO TID PRN #40 tablet 08/11/17 [Rx] Aspirin [Ecotrin] 325 mg PO BID #84 tablet. 09/18/17 [Rx] Docusate Sodium [Colace] 100 mg PO BID cap 09/18/17 [Rx] Magnesium Hydroxide [Milk of Magnesia] 30 ml PO BID PRN cup 09/18/17 [Rx] Sennosides [Senna] 8.6 mg PO BID PRN tablet 09/18/17 [Rx] traMADol [Ultram] 50 mg PO Q6H PRN #40 tablet 09/18/17 [Rx] Patient Handouts: Total Hip Replacement, [id number] Referrals: Savannah Emmanuel PA-C [Physician Rate Manager] - (Please follow up with Savannah Emmanuel on September 23 at 4pm, and you have second follow up on October 02 at 3pm.) - Patient Data Vitals - Most Recent: Last Vital Signs Temp 99.3 F 09/18/17 14:26 Pulse 86 09/18/17 14:27 Resp 18 09/18/17 14:26 BP 113/64 09/18/17 14:26 Pulse Ox 92 L 09/18/17 14:27 Weight - Most Recent: 208 lb 11.2 oz Med Orders - Current: Current Medications Discontinued Medications Aspirin (Ecotrin) 325 mg PO BID [facility] Last Admin: 09/18/17 08:34 Dose: 325 mg Bisacodyl (Dulcolax) 5 mg PO DAILY PRN PRN Reason: Constipation Bisacodyl (Dulcolax) 5 mg PO DAILY PRN PRN Reason: Constipation Bupivacaine HCl (Marcaine 0.25%) Confirm Administered Dose 30 ml .ROUTE .STK- MED ONE Stop: 09/17/17 11:42 Last Admin: 09/17/17 15:08 Dose: 30 ml Cefazolin Sodium (Ancef) Confirm Administered Dose 2 gm .ROUTE .STK-MED ONE Stop: 09/17/17 11:41 Last Admin: 09/17/17 15:03 Dose: 2 gm Cefazolin Sodium (Ancef) Confirm Administered Dose 2 gm .ROUTE .STK-MED ONE Stop: 09/17/17 13:18 Cyclobenzaprine HCl (Flexeril) 10 mg PO TID PRN PRN Reason: Spasms Cyclobenzaprine HCl (Flexeril) 10 mg PO TID PRN PRN Reason: Spasms Last Admin: 09/18/17 14:06 Dose: 10 mg Dexamethasone (Dexamethasone) Confirm Administered Dose 20 mg .ROUTE .STK-MED ONE Stop: 09/17/17 13:27 Diphenhydramine HCl (Benadryl) 25 mg IVPUSH Q6H PRN PRN Reason: pruritis Stop: 09/17/17 16:00 Docusate Sodium (Colace) 100 mg PO BID [facility] Last Admin: 09/18/17 08:33 Dose: 100 mg Docusate Sodium (Colace) 100 mg PO BID [facility] Ephedrine Sulfate (Ephedrine Sulfate) Confirm Administered Dose 50 mg .ROUTE .STK-MED ONE Stop: 09/17/17 14:47 Ephedrine Sulfate (Ephedrine Sulfate) Confirm Administered Dose 50 mg .ROUTE .STK-MED ONE Stop: 09/17/17 15:12 Famotidine (Pepcid) 20 mg PO Q12H [facility] Last Admin: 09/17/17 17:56 Dose: Not Given Fentanyl (Sublimaze) Confirm Administered Dose 100 mcg .ROUTE .STK-MED ONE Stop: 09/17/17 12:46 Fentanyl (Sublimaze) 50 mcg IVPUSH Q5M PRN PRN Reason: Pain Stop: 09/17/17 18:00 Last Admin: 09/17/17 16:18 Dose: 50 mcg Furosemide (Lasix) 20 mg IVPUSH ONETIME ONE Stop: 09/18/17 14:01 Last Admin: 09/18/17 14:28 Dose: 20 mg Glycopyrrolate () Confirm Administered Dose 1 mg .ROUTE .STK-MED ONE Stop: 09/17/17 14:36 Hydromorphone HCl (Dilaudid) Confirm Administered Dose 0.5 mg .ROUTE .STK-MED ONE Stop: 09/17/17 13:27 Hydromorphone HCl (Dilaudid) Confirm Administered Dose 0.5 mg .ROUTE .STK-MED ONE Stop: 09/17/17 13:52 Hydromorphone HCl (Dilaudid) Confirm Administered Dose 0.5 mg .ROUTE .STK-MED ONE Stop: 09/17/17 14:06 Hydromorphone HCl (Dilaudid) Confirm Administered Dose 0.5 mg .ROUTE .STK-MED ONE Stop: 09/17/17 14:32 Hydromorphone HCl (Dilaudid) Confirm Administered Dose 0.5 mg .ROUTE .STK-MED ONE Stop: 09/17/17 14:59 Hydromorphone HCl (Dilaudid) 0.5 mg IVPUSH ONETIME ONE Stop: 09/17/17 15:20 Last Admin: 09/17/17 16:50 Dose: 0.5 mg Lactated Ringer's (Ringers, Lactated) 1,000 mls @ 125 mls/hr IV ASDIRECTED [facility] Stop: 09/17/17 23:00 Last Admin: 09/17/17 11:30 Dose: 125 mls/hr Lidocaine HCl (Xylocaine-Mpf 1%) Confirm Administered Dose 2 mls @ as directed .ROUTE .[facility]-MED ONE Stop: 09/17/17 12:52 Lactated Ringer's (Ringers, Lactated) Confirm Administered Dose 1,000 mls @ as directed .ROUTE .ST-MED ONE Stop: 09/17/17 14:07 Acetaminophen (Ofirmev) 100 mls @ 615.385 mls/hr IV NOW ONE Stop: 09/17/17 15:27 Last Admin: 09/17/17 16:01 Dose: Not Given Lactated Ringer's (Ringers, Lactated) Confirm Administered Dose 1,000 mls @ as directed .ROUTE .STK-MED ONE Stop: 09/17/17 15:36 Lactated Ringer's (Ringers, Lactated) Confirm Administered Dose 1,000 mls @ as directed .ROUTE .STK-MED ONE Stop: 09/17/17 15:41 Cefazolin Sodium/Dextrose 2 gm (/ Premix) 50 mls @ 100 mls/hr IV Q8H [facility] Stop: 09/18/17 11:29 Ondansetron HCl 4 mg/ Sodium (Chloride) 52 mls @ 100 mls/hr IV Q6H PRN PRN Reason: Nausea Cefazolin Sodium/Dextrose 2 gm (/ Premix) 50 mls @ 100 mls/hr IV Q8H [facility] Stop: 09/18/17 13:29 Last Admin: 09/18/17 14:28 Dose: 100 mls/hr Sodium Chloride (Normal Saline) Confirm Administered Dose 1,000 mls @ as directed .ROUTE .STK-MED ONE Stop: 09/18/17 06:09 Last Admin: 09/18/17 06:10 Dose: 150 mls/hr Sodium Chloride (Normal Saline) 250 mls @ 500 mls/hr IV ASDIRECTED [facility] Stop: 09/18/17 09:00 Sodium Chloride (Normal Saline) 250 mls @ 100 mls/hr IV ASDIRECTED [facility] Stop: 09/18/17 17:00 Last Admin: 09/18/17 11:25 Dose: 100 mls/hr Iodine (Iodine 2% Mild Tincture) Confirm Administered Dose 30 ml .ROUTE .STK- MED ONE Stop: 09/17/17 11:42 Last Admin: 09/17/17 15:02 Dose: 18 ml Ketamine HCl (Ketalar) Confirm Administered Dose 500 mg .ROUTE .STK-MED ONE Stop: 09/17/17 13:52 Ketorolac Tromethamine (Toradol) 15 mg IVPUSH Q6H PRN PRN Reason: Pain Last Admin: 09/18/17 07:45 Dose: 15 mg Lidocaine/Sodium Bicarbonate (Buffered Lidocaine 1% In Ns 8.4%) 0.25 ml IDERM ONETIME PRN PRN Reason: Prior to IV Start Stop: 09/17/17 18:00 Last Admin: 09/17/17 11:29 Dose: 0.25 ml Magnesium Hydroxide (Milk Of Magnesia) 30 ml PO BID PRN PRN Reason: Constipation Magnesium Hydroxide (Milk Of Magnesia) 30 ml PO BID PRN PRN Reason: Constipation Magnesium Oxide (Magnesium Oxide) 400 mg PO DAILY [facility] Last Admin: 09/18/17 08:34 Dose: 400 mg Midazolam HCl (Versed 1 Mg/Ml) Confirm Administered Dose 2 mg .ROUTE .STK-MED ONE Stop: 09/17/17 12:46 Morphine Sulfate (Morphine) 2 mg IVPUSH Q2H PRN PRN Reason: Breakthrough Pain Last Admin: 09/18/17 07:38 Dose: 2 mg Multivitamins (Thera) 1 each PO DAILY [facility] Last Admin: 09/18/17 08:34 Dose: 1 each Neostigmine Methylsulfate (Neostigmine) Confirm Administered Dose 5 mg .ROUTE .STK-MED ONE Stop: 09/17/17 14:36 Ondansetron HCl (Zofran) Confirm Administered Dose 4 mg .ROUTE .STK-MED ONE Stop: 09/17/17 13:27 Ondansetron HCl (Zofran) 4 mg IVPUSH ONETIME PRN PRN Reason: Nausea/Vomiting Stop: 09/17/17 18:00 Ondansetron HCl (Zofran) 4 mg IVPUSH Q6H PRN PRN Reason: Nausea/Vomiting Last Admin: 09/17/17 18:51 Dose: 4 mg Ondansetron HCl (Zofran) Confirm Administered Dose 4 mg .ROUTE .STK-MED ONE Stop: 09/18/17 08:06 Oxycodone HCl (Oxycodone) 5 - 10 mg PO Q4H PRN PRN Reason: Pain Last Admin: 09/18/17 17:45 Dose: 10 mg Oxycodone HCl (Oxycodone) 5 mg PO Q6H PRN PRN Reason: Pain Last Admin: 09/18/17 11:24 Dose: 5 mg Pantoprazole Sodium (Protonix) 40 mg PO DAILY@0700 [facility] Last Admin: 09/18/17 07:41 Dose: 40 mg Phenylephrine HCl (Phenylephrine In Ns 100 Mcg/Ml) Confirm Administered Dose 1 mg .ROUTE .STK-MED ONE Stop: 09/17/17 15:41 Phenylephrine HCl (Phenylephrine In Ns 100 Mcg/Ml) Confirm Administered Dose 1 mg .ROUTE .STK-MED ONE Stop: 09/18/17 08:09 Polyethylene Glycol (Miralax) 17 gm PO DAILY PRN PRN Reason: Constipation Propofol (Diprivan 20 Ml) Confirm Administered Dose 200 mg .ROUTE .STK-MED ONE Stop: 09/17/17 12:46 Propofol (Diprivan 20 Ml) Confirm Administered Dose 200 mg .ROUTE .STK-MED ONE Stop: 09/17/17 13:53 Pseudoephedrine HCl (Sudogest) 60 mg PO DAILY PRN PRN Reason: Allergies Senna (Senna) 8.6 mg PO BID PRN PRN Reason: Constipation Senna (Senna) 8.6 mg PO BID PRN PRN Reason: Constipation Sertraline HCl (Zoloft) 100 mg PO DAILY [facility] Last Admin: 09/18/17 08:34 Dose: 100 mg Sodium Chloride (Saline Flush) 10 ml FLUSH ASDIRECTED PRN PRN Reason: Keep Vein Open Stop: 09/17/17 18:00 Tramadol HCl (Ultram) 50 mg PO Q6H PRN PRN Reason: Pain Last Admin: 09/18/17 15:54 Dose: 50 mg Tranexamic Acid (Cyklokapron) Confirm Administered Dose 1,000 mg .ROUTE .STK- MED ONE Stop: 09/17/17 11:41 Last Admin: 09/17/17 15:10 Dose: 1,000 mg Vancomycin HCl (Vancomycin) Confirm Administered Dose 1 gm .ROUTE .STK-MED ONE Stop: 09/17/17 11:41 Last Admin: 09/17/17 15:10 Dose: 1 gm
--- NOTE | 2017-09-23 08:17 | PCM.SURGPN ---
- General Info Date of Service: 09/18/17 POD#: 1 Functional Status: Reports: Pain Controlled, Tolerating Diet, Ambulating, Urinating, Incentive Spirometry, Other (Hx hypotension and is being managed by Hospitalist and improvements noted.) - Review of Systems General: Denies: Fever, Chills Musculoskeletal: Reports: Other (The pt reports pain is controlled.) - Patient Data Vitals - Most Recent: Last Vital Signs Temp 99.3 F 09/18/17 14:26 Pulse 86 09/18/17 14:27 Resp 18 09/18/17 14:26 BP 113/64 09/18/17 14:26 Pulse Ox 92 L 09/18/17 14:27 Weight - Most Recent: 208 lb 11.2 oz Med Orders - Current: Current Medications Discontinued Medications Aspirin (Ecotrin) 325 mg PO BID [facility] Last Admin: 09/18/17 08:34 Dose: 325 mg Bisacodyl (Dulcolax) 5 mg PO DAILY PRN PRN Reason: Constipation Bisacodyl (Dulcolax) 5 mg PO DAILY PRN PRN Reason: Constipation Bupivacaine HCl (Marcaine 0.25%) Confirm Administered Dose 30 ml .ROUTE .STK- MED ONE Stop: 09/17/17 11:42 Last Admin: 09/17/17 15:08 Dose: 30 ml Cefazolin Sodium (Ancef) Confirm Administered Dose 2 gm .ROUTE .STK-MED ONE Stop: 09/17/17 11:41 Last Admin: 09/17/17 15:03 Dose: 2 gm Cefazolin Sodium (Ancef) Confirm Administered Dose 2 gm .ROUTE .STK-MED ONE Stop: 09/17/17 13:18 Cyclobenzaprine HCl (Flexeril) 10 mg PO TID PRN PRN Reason: Spasms Cyclobenzaprine HCl (Flexeril) 10 mg PO TID PRN PRN Reason: Spasms Last Admin: 09/18/17 14:06 Dose: 10 mg Dexamethasone (Dexamethasone) Confirm Administered Dose 20 mg .ROUTE .STK-MED ONE Stop: 09/17/17 13:27 Diphenhydramine HCl (Benadryl) 25 mg IVPUSH Q6H PRN PRN Reason: pruritis Stop: 09/17/17 16:00 Docusate Sodium (Colace) 100 mg PO BID [facility] Last Admin: 09/18/17 08:33 Dose: 100 mg Docusate Sodium (Colace) 100 mg PO BID [facility] Ephedrine Sulfate (Ephedrine Sulfate) Confirm Administered Dose 50 mg .ROUTE .STK-MED ONE Stop: 09/17/17 14:47 Ephedrine Sulfate (Ephedrine Sulfate) Confirm Administered Dose 50 mg .ROUTE .STK-MED ONE Stop: 09/17/17 15:12 Famotidine (Pepcid) 20 mg PO Q12H [facility] Last Admin: 09/17/17 17:56 Dose: Not Given Fentanyl (Sublimaze) Confirm Administered Dose 100 mcg .ROUTE .STK-MED ONE Stop: 09/17/17 12:46 Fentanyl (Sublimaze) 50 mcg IVPUSH Q5M PRN PRN Reason: Pain Stop: 09/17/17 18:00 Last Admin: 09/17/17 16:18 Dose: 50 mcg Furosemide (Lasix) 20 mg IVPUSH ONETIME ONE Stop: 09/18/17 14:01 Last Admin: 09/18/17 14:28 Dose: 20 mg Glycopyrrolate () Confirm Administered Dose 1 mg .ROUTE .STK-MED ONE Stop: 09/17/17 14:36 Hydromorphone HCl (Dilaudid) Confirm Administered Dose 0.5 mg .ROUTE .STK-MED ONE Stop: 09/17/17 13:27 Hydromorphone HCl (Dilaudid) Confirm Administered Dose 0.5 mg .ROUTE .STK-MED ONE Stop: 09/17/17 13:52 Hydromorphone HCl (Dilaudid) Confirm Administered Dose 0.5 mg .ROUTE .STK-MED ONE Stop: 09/17/17 14:06 Hydromorphone HCl (Dilaudid) Confirm Administered Dose 0.5 mg .ROUTE .STK-MED ONE Stop: 09/17/17 14:32 Hydromorphone HCl (Dilaudid) Confirm Administered Dose 0.5 mg .ROUTE .STK-MED ONE Stop: 09/17/17 14:59 Hydromorphone HCl (Dilaudid) 0.5 mg IVPUSH ONETIME ONE Stop: 09/17/17 15:20 Last Admin: 09/17/17 16:50 Dose: 0.5 mg Lactated Ringer's (Ringers, Lactated) 1,000 mls @ 125 mls/hr IV ASDIRECTED [facility] Stop: 09/17/17 23:00 Last Admin: 09/17/17 11:30 Dose: 125 mls/hr Lidocaine HCl (Xylocaine-Mpf 1%) Confirm Administered Dose 2 mls @ as directed .ROUTE .[facility] ONE Stop: 09/17/17 12:52 Lactated Ringer's (Ringers, Lactated) Confirm Administered Dose 1,000 mls @ as directed .ROUTE .[facility] Stop: 09/17/17 14:07 Acetaminophen (Ofirmev) 100 mls @ 615.385 mls/hr IV NOW ONE Stop: 09/17/17 15:27 Last Admin: 09/17/17 16:01 Dose: Not Given Lactated Ringer's (Ringers, Lactated) Confirm Administered Dose 1,000 mls @ as directed .ROUTE .[facility] ONE Stop: 09/17/17 15:36 Lactated Ringer's (Ringers, Lactated) Confirm Administered Dose 1,000 mls @ as directed .ROUTE .[facility] Stop: 09/17/17 15:41 Cefazolin Sodium/Dextrose 2 gm (/ Premix) 50 mls @ 100 mls/hr IV Q8H [facility] Stop: 09/18/17 11:29 Ondansetron HCl 4 mg/ Sodium (Chloride) 52 mls @ 100 mls/hr IV Q6H PRN PRN Reason: Nausea Cefazolin Sodium/Dextrose 2 gm (/ Premix) 50 mls @ 100 mls/hr IV Q8H [facility] Stop: 09/18/17 13:29 Last Admin: 09/18/17 14:28 Dose: 100 mls/hr Sodium Chloride (Normal Saline) Confirm Administered Dose 1,000 mls @ as directed .ROUTE .[facility] ONE Stop: 09/18/17 06:09 Last Admin: 09/18/17 06:10 Dose: 150 mls/hr Sodium Chloride (Normal Saline) 250 mls @ 500 mls/hr IV ASDIRECTED [facility] Stop: 09/18/17 09:00 Sodium Chloride (Normal Saline) 250 mls @ 100 mls/hr IV ASDIRECTED [facility] Stop: 09/18/17 17:00 Last Admin: 09/18/17 11:25 Dose: 100 mls/hr Iodine (Iodine 2% Mild Tincture) Confirm Administered Dose 30 ml .ROUTE .STK- MED ONE Stop: 09/17/17 11:42 Last Admin: 09/17/17 15:02 Dose: 18 ml Ketamine HCl (Ketalar) Confirm Administered Dose 500 mg .ROUTE .STK-MED ONE Stop: 09/17/17 13:52 Ketorolac Tromethamine (Toradol) 15 mg IVPUSH Q6H PRN PRN Reason: Pain Last Admin: 09/18/17 07:45 Dose: 15 mg Lidocaine/Sodium Bicarbonate (Buffered Lidocaine 1% In Ns 8.4%) 0.25 ml IDERM ONETIME PRN PRN Reason: Prior to IV Start Stop: 09/17/17 18:00 Last Admin: 09/17/17 11:29 Dose: 0.25 ml Magnesium Hydroxide (Milk Of Magnesia) 30 ml PO BID PRN PRN Reason: Constipation Magnesium Hydroxide (Milk Of Magnesia) 30 ml PO BID PRN PRN Reason: Constipation Magnesium Oxide (Magnesium Oxide) 400 mg PO DAILY [facility] Last Admin: 09/18/17 08:34 Dose: 400 mg Midazolam HCl (Versed 1 Mg/Ml) Confirm Administered Dose 2 mg .ROUTE .STK-MED ONE Stop: 09/17/17 12:46 Morphine Sulfate (Morphine) 2 mg IVPUSH Q2H PRN PRN Reason: Breakthrough Pain Last Admin: 09/18/17 07:38 Dose: 2 mg Multivitamins (Thera) 1 each PO DAILY [facility] Last Admin: 09/18/17 08:34 Dose: 1 each Neostigmine Methylsulfate (Neostigmine) Confirm Administered Dose 5 mg .ROUTE .STK-MED ONE Stop: 09/17/17 14:36 Ondansetron HCl (Zofran) Confirm Administered Dose 4 mg .ROUTE .STK-MED ONE Stop: 09/17/17 13:27 Ondansetron HCl (Zofran) 4 mg IVPUSH ONETIME PRN PRN Reason: Nausea/Vomiting Stop: 09/17/17 18:00 Ondansetron HCl (Zofran) 4 mg IVPUSH Q6H PRN PRN Reason: Nausea/Vomiting Last Admin: 09/17/17 18:51 Dose: 4 mg Ondansetron HCl (Zofran) Confirm Administered Dose 4 mg .ROUTE .STK-MED ONE Stop: 09/18/17 08:06 Oxycodone HCl (Oxycodone) 5 - 10 mg PO Q4H PRN PRN Reason: Pain Last Admin: 09/18/17 17:45 Dose: 10 mg Oxycodone HCl (Oxycodone) 5 mg PO Q6H PRN PRN Reason: Pain Last Admin: 09/18/17 11:24 Dose: 5 mg Pantoprazole Sodium (Protonix) 40 mg PO DAILY@0700 [facility] Last Admin: 09/18/17 07:41 Dose: 40 mg Phenylephrine HCl (Phenylephrine In Ns 100 Mcg/Ml) Confirm Administered Dose 1 mg .ROUTE .STK-MED ONE Stop: 09/17/17 15:41 Phenylephrine HCl (Phenylephrine In Ns 100 Mcg/Ml) Confirm Administered Dose 1 mg .ROUTE .STK-MED ONE Stop: 09/18/17 08:09 Polyethylene Glycol (Miralax) 17 gm PO DAILY PRN PRN Reason: Constipation Propofol (Diprivan 20 Ml) Confirm Administered Dose 200 mg .ROUTE .STK-MED ONE Stop: 09/17/17 12:46 Propofol (Diprivan 20 Ml) Confirm Administered Dose 200 mg .ROUTE .STK-MED ONE Stop: 09/17/17 13:53 Pseudoephedrine HCl (Sudogest) 60 mg PO DAILY PRN PRN Reason: Allergies Senna (Senna) 8.6 mg PO BID PRN PRN Reason: Constipation Senna (Senna) 8.6 mg PO BID PRN PRN Reason: Constipation Sertraline HCl (Zoloft) 100 mg PO DAILY [facility] Last Admin: 09/18/17 08:34 Dose: 100 mg Sodium Chloride (Saline Flush) 10 ml FLUSH ASDIRECTED PRN PRN Reason: Keep Vein Open Stop: 09/17/17 18:00 Tramadol HCl (Ultram) 50 mg PO Q6H PRN PRN Reason: Pain Last Admin: 09/18/17 15:54 Dose: 50 mg Tranexamic Acid (Cyklokapron) Confirm Administered Dose 1,000 mg .ROUTE .STK- MED ONE Stop: 09/17/17 11:41 Last Admin: 09/17/17 15:10 Dose: 1,000 mg Vancomycin HCl (Vancomycin) Confirm Administered Dose 1 gm .ROUTE .STK-MED ONE Stop: 09/17/17 11:41 Last Admin: 09/17/17 15:10 Dose: 1 gm - Exam Wound/Incisions: Dressing Dry and Intact General: Alert, Cooperative, No Acute Distress Extremities: Other (NVS intact for LLE. Harjit's negative for BLE. Left thigh soft.) - Problem List Review Problem List Initiated/Reviewed/Updated: Yes - Assessment Assessment (Free Text/Narrative):: POD#1 - s/p revision of left JAMARCUS femoral stem for hx stem subsidence with fx - Plan Plan (Free Text/Narrative):: 1. Discharge today if cleared by Hospitalist service. 2. 325mg ASA BID, frequent mobility and TEDs discussed with pt and . 3. Percocet and ASA for pain management. The pt's case was discussed with Dr. De La Rosa.
== END 2017-09-18 18:57 | disposition home or self-care (01) | DRG 467 ==
LOC: JD.SDS 10:51 → JD.MS 17:13
PROVIDERS: ADMIT Orthopaedic Surgery; ATTEND Orthopaedic Surgery
PROC: 0SPS0JZ Removal of Synthetic Substitute from Left Hip Joint, Femoral Surface, Open Approach (ICD-10-PCS; principal; 2017-09-17)
PROC: 0SRS0JA Replacement of Left Hip Joint, Femoral Surface with Synthetic Substitute, Uncemented, Open Approach (ICD-10-PCS; principal; 2017-09-17)
PROC: 30233N1 Transfusion of Nonautologous Red Blood Cells into Peripheral Vein, Percutaneous Approach (ICD-10-PCS; 2017-09-18)
DX: S72.92XA Unspecified fracture of left femur, initial encounter for closed fracture (principal); M97.02XA Periprosthetic fracture around internal prosthetic left hip joint, initial encounter; T81.4XXA Infection following a procedure, initial encounter; L02.416 Cutaneous abscess of left lower limb; Y83.8 Other surgical procedures as the cause of abnormal reaction of the patient, or of later complication, without mention of misadventure at the time of the procedure; K59.09 Other constipation; F32.9 Major depressive disorder, single episode, unspecified; E66.9 Obesity, unspecified; R53.83 Other fatigue; I95.9 Hypotension, unspecified; I10 Essential (primary) hypertension; R53.1 Weakness; H54.7 Unspecified visual loss; K21.9 Gastro-esophageal reflux disease without esophagitis; M99.01 Segmental and somatic dysfunction of cervical region; Z87.440 Personal history of urinary (tract) infections; Z79.82 Long term (current) use of aspirin; Z79.899 Other long term (current) drug therapy; Z88.3 Allergy status to other anti-infective agents; Z88.8 Allergy status to other drugs, medicaments and biological substances; Z87.891 Personal history of nicotine dependence; Z68.27 Body mass index [BMI] 27.0-27.9, adult
CPT/HCPCS: 01214; 36415; 36430; 73501-26-LT; 73501-LT; 76000; 76000-26; 80053; 85027; 86850; 86900; 86901; 86922; 94761; 97165-GO; 97535-GO; A9270-GY; C1776; J0690; J1100; J1170; J1885; J2001; J2250; J2270; J2405; J2704; J2710; J3010; J3370; J3490; J7040; J7050; J7120; P9016